=== PATIENT | male | born 1965 | race Two or more races ===

== ENCOUNTER → 2016-06-05 | Outpatient (CLI) | payer BC, OTHER ==
--- NOTE | 2016-06-05 20:49 | PN ---
51-year-old gentleman who has been followed in the sleep center for treatment of obstructive sleep apnea-hypopnea syndrome. Recently patient had a diagnostic sleep study and CPAP titration. We discussed results of the test with him in detail. Presently he is on treatment with CPAP with a pressure of 9 cm of water. The patient demonstrated usage of the machine every night and 23 out of 30 nights for more than 4 hours. Leak is 19 L per minute, which is acceptable. Apnea-hypopnea index reading from the machine is 2.0, which is in normal range. [place] Sleepiness Scale is 8. The patient feels better with the usage of CPAP equipment. He sleeps better and his family sleeps better because he does not snore. MEDICATIONS: None. During physical exam, the patient in no distress. VITAL SIGNS: BP 146/84, HR 106, RR 16. Weight 302. Temperature 98.4, oxygen saturation at room air 96%. HEENT: PERRLA, EOMI oropharynx low position of soft palate. PHYSICAL EXAMINATION: GENERAL: A pleasant patient without any distress. VITAL SIGNS: BP, HR, RR, weight, body mass index. HEENT: PERRLA, EOMI. Evaluation of oropharynx showed tongue protrudes midline. Neck: Supple. No JVD. Thyroid is not palpable. LUNGS: Clear to percussion and to auscultation. Good air exchange. No wheezing or rhonchi. HEART: S1, S2 regular. No murmurs, gallops, or rubs. ABDOMEN: Obese, Soft and nontender. Bowel sounds are present. No organomegaly appreciated. EXTREMITIES: No clubbing or cyanosis. PERINATOLOGY PHYSICIAN: Awake, alert, and oriented x3. Cranial nerves 2 to 7 intact. There is no fasciculation or atrophy noted. No focal deficits observed. IMPRESSION: 1. Obstructive sleep apnea/hypopnea syndrome on control with CPAP at 9 cm of water. Patient demonstrated good compliance with treatment benefiting from treatment. 2. Obesity. The patient complains that he has sometimes soggy nose while he is using CPAP equipment. 3. Severe periodic limb movements have been documented during titration. PLAN: 1. I will decrease pressure to 7 cm of water. 2. Losing weight. 3. We will change full face mask to AirFit F10 style. 4. No driving if feeling any sleepiness. 5. Sleep hygiene with regular time bed for at least 8 hours. Thank you very much for allowing me to participate in the management of your patient. Sincerely, Stan Clemens MD, PhD, FAASM. Diplomat of [place] [employer], Sleep Medicine Board by [place] [employer] [place] [employer] Marketing Clerk of [facility] [place]
== END | disposition home or self-care (01) ==
LOC: SLEEP 16:40
PROVIDERS: ATTEND Internal Medicine
DX: G47.33 Obstructive sleep apnea (adult) (pediatric) (principal); E66.9 Obesity, unspecified

== ENCOUNTER → 2017-07-30 | Outpatient (CLI) | payer BC ==
--- NOTE | 2017-07-30 12:14 | SFUN ---
SLEEP CENTER FOLLOW UP NOTE DATE OF SERVICE: 07/30/2017 A 52-year-old gentleman had been followed in sleep center for treatment of obstructive sleep apnea-hypopnea syndrome. The patient continued to use his CPAP equipment and has developed snoring while using his CPAP unit. [place] Sleepiness Scale is 10. Weight is about the same range. This was done during the titration. I checked the patient's CPAP unit. CPAP pressure is 7 cm of water. Usage for last month is 24/30 nights and 19/30 nights for more than 4 hours, average usage 5.4 hours. Leak 25 L/minute, which is acceptable. Apnea-hypopnea index 3.9, which is acceptable normal range. MEDICATIONS: None. PHYSICAL EXAMINATION: During physical exam, patient in no distress. VITAL SIGNS: BP 146/70, HR 72, RR 16, height 6 feet 7 inches, weight 306, BMI 40.3, temperature 97.7, oxygen saturation room air 96%. HEENT: PERRLA, EOMI. Oropharynx to low position of soft palate. NECK: Supple, no JVD. Thyroid is not palpable. LUNGS: Clear to percussion and to auscultation. Good air exchange. No wheezing or rhonchi. HEART: S1, S2 regular. No murmurs, gallops, or rubs. ABDOMEN: Obese. EXTREMITIES: No clubbing or cyanosis. CORDUROY CUTTING SUPERVISOR: Awake, alert, and oriented X3. Cranial nerves 2 to 7 intact. There is no fasciculation or atrophy. noted. No focal deficits observed. IMPRESSION: 1. Obstructive sleep apnea-hypopnea syndrome. The patient continues successfully to use his CPAP equipment, benefitting from treatment, episodes of snoring while using CPAP. 2. Obesity. 3. History of periodic limb movements during titration. No clinical symptoms of leg movements at the present time. PLAN: 1. I will increase pressure in CPAP unit to 9 cm of water. 2. Losing weight. 3. Sleep hygiene with regular time in bed for at least 8 hours. 4. Patient to continue to use CPAP equipment every night for the whole night. 5. Prescription for all necessary CPAP supplies including mask of patient's choice, tube, filters. Thank you very much for allowing me to participate in management of your patient. Sincerely, Stan Clemens MD, PhD, FAASM Diplomat of [place] [employer] [place] [employer] Piece Jobber of [facility] [place] MMMORENITA / DIONNEN: [id number] /
== END | disposition home or self-care (01) ==
LOC: SLEEP 10:59
PROVIDERS: ATTEND Internal Medicine
DX: G47.33 Obstructive sleep apnea (adult) (pediatric) (principal); E66.9 Obesity, unspecified; Z99.89 Dependence on other enabling machines and devices; Z68.41 Body mass index [BMI] 40.0-44.9, adult

== ENCOUNTER → 2018-06-09 | Outpatient (CLI) | payer OTHER ==
[2018-06-09 17:37] LABS: LDL Cholesterol,Calculated 97.8 mg/dL (0.0-131.0); VLDL Calculation 24.2 mg/dL (5.00-40.00)
== END ==
LOC: LABWHC1 09:54
PROVIDERS: ATTEND Family Medicine
DX: Z00.00 Encounter for general adult medical examination without abnormal findings (principal)
CPT/HCPCS: 80061; 83036; 36415; G0103

== ENCOUNTER → 2018-06-09 | Outpatient (CLI) | payer OTHER ==
[2018-06-09 11:19] LABS: Appearance,Urine Clear (Clear); Bilirubin,Urine Negative (Negative); Blood,Urine Negative (Negative); Color,Urine Yellow; Glucose,Urine (UA) Negative (Negative); Ketones,Urine Negative (Negative); Leukocyte Esterase,Urine Negative (Negative); Nitrite,Urine Negative (Negative); PH, Urine 7.5 (5.0-8.0); Protein,Urine Negative (Negative); Urobilinogen,Urine <2.0 mg/dL (<2.0)
[2018-06-09 11:38] LABS: ALT 37 U/L (21-72); AST 20 U/L (17-59); Albumin 4.2 g/dL (3.5-5.0); Alkaline Phosphatase 74 U/L (38-126); Anion Gap 7 mmol/L; Blood Urea Nitrogen 12 mg/dL (9-20); Calcium 9.3 mg/dL (8.4-10.2); Carbon Dioxide 28 mmol/L (22-30); Chloride 106 mmol/L (98-107); Glucose 96 mg/dL (74-99); Potassium 4.8 mmol/L (3.5-5.1); Sodium 141 mmol/L (137-145); Total Bilirubin 0.6 mg/dL (0.2-1.3); Total Protein 6.6 g/dL (6.3-8.2)
[2018-06-09 11:52] LABS: HGB 15.4 gm/dL (13.0-17.5); MCHC 32.7 g/dL (31.0-37.0); MCV 91.6 fL (80.0-100.0); Mean Platelet Volume 7.1; Platelet Count 263 k/uL (150-450); RBC 5.13 m/uL (4.30-5.90); RDW 12.7 % (11.5-15.5); WBC 5.9 k/uL (3.8-10.6)
[2018-06-09 12:15] LABS: INR 0.9 (<1.2); Partial Thromboplastin Time 24.3 sec (22.0-30.0); Prothrombin Time 9.6 sec (9.0-12.0)
== END | disposition home or self-care (01) ==
LOC: LABPAT 09:57
PROVIDERS: ATTEND Orthopaedic Surgery
DX: Z01.812 Encounter for preprocedural laboratory examination (principal); M16.12 Unilateral primary osteoarthritis, left hip
CPT/HCPCS: 80053; 81003; 85027; 85610; 85730; 87070

== ENCOUNTER 2018-06-21 07:00 | Inpatient (IN) | payer BC, OTHER ==
[2018-06-22] MEDS ORDERED: ceFAZolin 3 GM in SODIUM CHLORIDE 0.9% 100 ML IVPB ONE (05:00)
[2018-06-22] MEDS ORDERED: ACETAMINOPHEN TAB 500 MG TAB PO ONE (05:00)
[2018-06-22] MEDS ORDERED: TRANEXAMIC ACID 1,000 MG in SODIUM CHLORIDE 0.9% 100 ML IVPB ONE ×4 (05:00)
[2018-06-22] MEDS ORDERED: MELOXICAM 7.5 MG TAB PO ONE (05:00)
[2018-06-22] MEDS ORDERED: HYDROmorphone 0.5 MG/0.5 ML SYRINGE IVP PRN (05:16)
[2018-06-22] MEDS ORDERED: MIDAZOLAM 2 MG/2 ML VIAL IV PRN (05:16)
[2018-06-22] MEDS ORDERED: ONDANSETRON 4 MG/2 ML VIAL IVP ONE (05:16)
[2018-06-22] MEDS ORDERED: SCOPOLAMINE 1.5MG/72HR PATCH TRANSDERM ONE (05:16)
[2018-06-22] MEDS ORDERED: DEXAMETHASONE SOD PHOSPHATE 10 MG/ML 1 ML VIAL IV ONE (05:16)
[2018-06-22] MEDS ORDERED: LIDOCAINE 1% 20 ML VIAL (10MG/ML) FOR IV START INTRADERMA PRN (05:16)
[2018-06-22] MEDS ORDERED: LACTATED RINGERS 1,000 ML IV SCH (05:16)
[2018-06-22] MEDS ORDERED: ROPIVACAINE 246.25 MG, EPINEPHrine 0.5 MG, KETOROLAC 30 MG, cloNIDine HCL/PF 80 MCG, WA... MISCELLANE ONE ×5 (06:00)
[2018-06-22] MEDS ORDERED: TRANEXAMIC ACID 1,000 MG/10 ML VIAL ONE (06:57)
[2018-06-22] MEDS ORDERED: MIDAZOLAM 2 MG/2 ML VIAL ONE (06:57)
[2018-06-22] MEDS ORDERED: fentaNYL (PF) 50 MCG/ML 2 ML AMP ONE (06:57)
[2018-06-22] MEDS ORDERED: SODIUM CHLORIDE 0.9% 100 ML BAG ONE (06:57)
[2018-06-22] MEDS ORDERED: KETAMINE 10 MG/ML 20 ML VIAL ONE (06:57)
[2018-06-22] MEDS ORDERED: HEPARIN SODIUM,PORCINE 10,000 UNIT/ML 1 ML VIAL ONE (06:57)
[2018-06-22] MEDS ORDERED: diphenhydrAMINE 50 MG/ML 1 ML VIAL ONE (06:57)
[2018-06-22] MEDS ORDERED: LACTATED RINGERS 1,000 ML BAG IV ONE (06:57)
[2018-06-22] MEDS ORDERED: PROPOFOL 10 MG/ML 20 ML VIAL IV ONE (06:57)
[2018-06-22] MEDS ORDERED: GLYCOPYRROLATE 0.2 MG/ML 2 ML VIAL ONE (06:57)
[2018-06-22] MEDS ORDERED: ceFAZolin 3,000 MG in SODIUM CHLORIDE 0.9% IRRIGATIO 3,000 ML IRRIGATION ONE (07:27)
[2018-06-22] MEDS ORDERED: LACTATED RINGERS 1,000 ML IV ONE (08:03)
[2018-06-22] MEDS ORDERED: ONDANSETRON 4 MG/2 ML VIAL IVP PRN (09:00)
[2018-06-22] MEDS ORDERED: NALOXONE 0.4 MG/ML 1 ML VIAL IV PRN (09:00)
[2018-06-22] MEDS ORDERED: HYDROmorphone 1 MG/ML 1 ML SYRINGE IVP PRN ×2 (09:00)
[2018-06-22] MEDS ORDERED: HYDROcodone/APAP 5-325MG 1 EACH TAB PO PRN (09:00)
[2018-06-22] MEDS ORDERED: MAGNESIUM HYDROXIDE 2,400 MG/10 ML CUP PO PRN (09:00)
[2018-06-22] MEDS ORDERED: TEMAZEPAM 15 MG CAP PO PRN (09:00)
--- NOTE | 2018-06-22 09:02 | P.OP ---
Date of Procedure: 06/22/18 Preoperative Diagnosis: Severe osteoarthritis left hip Postoperative Diagnosis: Severe osteoarthritis left hip Procedure(s) Performed: Left total hip arthroplasty with a direct anterior approach Implants: Miranda and nephew Polarstem size 6 standard Miranda & Nephew R3, 3 hole acetabular shell, 56 mm Miranda & Nephew reflection 6.5 mm cancellus screw, 20 mm, 25 mm Miranda & Nephew R3, XLPE 20 acetabular liner Miranda & Nephew Oxinium femoral head 36 m, +8 All components were press-fit. The articulation is Oxinium on polyethylene. Anesthesia: spinal Surgeon: Marciano Gannon Cable Installation Technician #1: Suzanna Joyce Estimated Blood Loss (ml): 470 (180 mL returned with Cell Saver) Pathology: other (Femoral head) Condition: stable Disposition: PACU Indications for Procedure: After failure of conservative treatment we discussed the surgical and nonsurgical treatment options at length. Patient wishes to proceed with a total hip arthroplasty with a direct anterior approach. Complications specific to this procedure were discussed at length, including but not limited to infection, leg length discrepancy, dislocation, and nerve injury. Patient is aware of all these complications and informed consent was obtained Operative Findings: The operative findings are consistent with severe osteoarthritis of the left hip Description of Procedure: Patient was seen and evaluated in the preoperative area, consent was reviewed, and the surgical site was marked with a skin marker. Patient was then brought to the operating room and given prophylactic antibiotics intravenously. 1 g of Tranexamic acid was also given. A spinal anesthetic was administered by the anesthesia department. The patient was then placed on the [place] table with the bony prominences well-padded. The hip area was then prepped and draped in usual sterile fashion. A universal timeout was then performed, which confirmed the patient's name, surgical site, ALLERGIES, and procedure being performed. Next the incision site was located at 1 cm distal and 1 cm lateral to the anterior superior iliac spine. The skin and subcutaneous tissues were sharply incised. Incision was carefully dissected down to the fascia overlying the tensor fascia francisco javier muscle. This fascia was then incised in line with the incision. Next, using blunt finger dissection, the tensor fascia francisco javier muscle was dissected off its investing fascia. The muscle was then carefully retracted laterally with a cobra retractor over the lateral neck of the femur. Next, the circumflex vessels were identified and cauterized using the AquaMantis device. The anterior hip capsule was then exposed. The capsule was then opened and an inverted T fashion. Cobra retractors were then placed intracapsularly. The proximal femur was then visualized. The femoral neck was then osteotomized appropriate level above the lesser trochanter. Small amount of traction was placed with the [place] table. A small wedge of bone was then removed from the remaining femoral head. Next, using a corkscrew femoral head was easily removed from the acetabulum. On gross visual inspection, the femoral head had complete loss of articular cartilage in m ultiple periarticular osteophytes. Attention was then turned to the acetabulum. the acetabulum was exposed and any remaining labrum was excised. Sequential reaming of the acetabulum was performed using fluoroscopic guidance. When the appropriate size was reached, a trial was then placed. The position and fit of the trial was checked with fluoroscopy. The trial was then removed. Then, using fluoroscopic guidance, the final implant was impacted at 20 of anteversion and 40 of abduction, and fully seated in the acetabulum. 2 screws were then placed in the acetabulum. Again fluoroscopy was used to check position of the screws. Next, the liner was then impacted, with a 20 elevated liner located in the anterior superior quadrant. Component locking was confirmed. Attention was then directed to the femur. With the aid of the [place] table, the femur was externally rotated to approximately 130, extended, and abducted under the opposite leg. A side hook was then placed under the proximal femur, and the side hook elevator was used to elevate the proximal femur. Retractors were then placed. A capsular release was performed, as well as a release of the conjoined tendon, which afforded excellent visualization of the proximal femur. Next, a box osteotome was used to lateralize the proximal femur. A launderer hand was then used to locate the femoral canal. Sequential broaching was then performed with appropriate size which afforded excellent fixation in the proximal femur. A trial was then placed with appropriate head and neck, and the hip was gently reduced with the aid of the [place] table. Fluoroscopy was then used to check position of the components, as well as to ensure equal leg lengths. The hip was then gently dislocated and the trials were then removed. Final implants were then impacted and the hip was again reduced. Final fluoroscopic x-rays confirmed that the components were in anatomic position, as well as equal leg lengths. The hip was also taken through range of motion, and found to be stable. The hip was then copiously irrigated with antibiotic solution with pulsatile lavage. The hip was then irrigated with Irrisept solution. The soft tissues were then injected with a ropivacaine solution, which consisted of 246.25 mg of ropivacaine, 0.5 mg of epinephrine, 30 mg of Toradol, 80 g of clonidine, and 48.45 mL of sterile water, for a total of 100 mL of fluid injected. A second dose of 1 g of Tranexamic acid was also given. the fascia was then closed with 2-0 strata fix suture. The subcutaneous tissue was closed with 3-0 Vicryl. The subcuticular tissue was closed with 3-0 strata fix suture. The skin was then closed with Dermabond glue and a sterile silver dressing. The patient was then transferred to the recovery room in stable c ondition. The hardware sales assistant Suzanna Joyce NP was required due to the complexity of surgery, and the need for skilled surgical garment fitter for positioning, draping, exposure, retraction, and closure of the wound.
--- NOTE | 2018-06-22 09:05 | XR ---
EXAMINATION TYPE: XR Hip Limited LT, FL guidance operating room DATE OF EXAM: 06/22/2018 CLINICAL HISTORY: Left hip arthroplasty fluoroscopic documentation TECHNIQUE: Fluoroscopy. COMPARISON: None. FINDINGS: Fluoroscopic guidance was provided during procedure performed by Dr. Gannon. A total of 1 minute and 5 seconds of fluoroscopic time was utilized during the procedure and 2 spot images was acquired during left hip arthroplasty. IMPRESSION: As Above.
--- NOTE | 2018-06-22 09:29 | XR ---
EXAMINATION TYPE: XR Hip Limited LT DATE OF EXAM: 06/22/2018 COMPARISON: NONE HISTORY: Postsurgical TECHNIQUE: One view submitted. FINDINGS: There is postsurgical change in near anatomic alignment. There is soft tissue edema and emphysema. IMPRESSION: 1. Postoperative change. Appears in near-anatomic alignment.
[2018-06-22] MEDS: HYDROcodone/APAP 5-325MG 1 EACH TAB PO PRN (12:26)
[2018-06-22] MEDS: hydrOXYzine PAMOATE 25 MG CAP PO PRN (12:30)
[2018-06-22] MEDS: LACTATED RINGERS 1,000 ML IV SCH ×2 (12:31→22:20)
[2018-06-22 14:00] VITALS: BMI 39.2
[2018-06-22] MEDS: HYDROmorphone 1 MG/ML 1 ML SYRINGE IVP PRN ×3 (14:12→21:26)
[2018-06-22] MEDS: ceFAZolin 3 GM in SODIUM CHLORIDE 0.9% 100 ML IVPB SCH (17:27)
[2018-06-22] MEDS: LOSARTAN 25 MG TAB PO SCH (18:01)
[2018-06-22] MEDS: ASPIRIN 325 MG TAB PO SCH (21:26)
[2018-06-22] MEDS: SENNOSIDES-DOCUSATE SODIUM 1 EACH TAB PO SCH (21:26)
[2018-06-23] MEDS: ceFAZolin 3 GM in SODIUM CHLORIDE 0.9% 100 ML IVPB SCH (00:02)
[2018-06-23] MEDS: HYDROcodone/APAP 5-325MG 1 EACH TAB PO PRN ×2 (01:45→07:39)
[2018-06-23] MEDS: LACTATED RINGERS 1,000 ML IV SCH ×2 (07:19→13:43)
[2018-06-23] MEDS: LOSARTAN 25 MG TAB PO SCH (08:01)
[2018-06-23] MEDS: ASPIRIN 325 MG TAB PO SCH ×2 (08:01→20:32)
[2018-06-23] MEDS ORDERED: HYDROcodone/APAP 7.5-325MG 1 EACH TAB PO PRN ×2 (08:14)
--- NOTE | 2018-06-23 08:24 | P.DS ---
Providers Date of admission: 06/22/18 05:55 Expected date of discharge: 06/23/18 Attending physician: Marciano Gannon Consults: 06/22/18 09:00 Consult Physician Routine Consulting Provider: Virgilio Branch Reason/Comments: medical management Do you want consulting provider notified?: Yes Primary care physician: Virgilio Branch - Discharge Diagnosis(es) (1) Osteoarthritis of left hip Current Visit: Yes Status: Acute (2) Status post total hip replacement, left Current Visit: Yes Status: Acute (3) Hypertension Current Visit: Yes Status: Acute Hospital Course: This is a 53-year-old male with known history of degenerative arthritis of the left hip. The patient presents for evaluation. After discussion and consideration patient elects to proceed with total hip arthroplasty. The patient is seen preoperatively by Dr. Branch and cleared for surgery. Patient is admitted to [facility] on 06/22/2018 for anterior left total hip arthroplasty. The procedures performed without complication or sequelae. The patient is doing well postoperatively. Labs and vital signs are stable on day of discharge. On day of discharge patient's hip incision is healing well. There is minimal erythema. There is no drainage noted at this time. There is minimal soft tissue swelling to the hip and thigh. Patient has full foot and ankle motion without difficulty or pain. Neurovascular status to the left lower extremity is intact. Patient is discharged to home in good condition. Pertinent Studies: Laboratory Tests 06/23/18 08:57 WBC 9.6 RBC 4.41 Hgb 13.8 Hct 40.9 Patient Condition at Discharge: Stable Plan - Discharge Summary Discharge Rx Participant: Yes New Discharge Prescriptions: New Aspirin 325 mg PO BID #60 tab Hydrocodone/Acetaminophen [[place] 7.5-325] 1 - 2 tab PO Q4-6H PRN 7 Days #50 tab PRN Reason: Pain Sennosides-Docusate Sodium [Senokot-S] 2 tab PO DAILY #30 tablet No Action Losartan [Cozaar] 25 mg PO DAILY Ibuprofen [Motrin] 800 mg PO BID PRN PRN Reason: Pain Discharge Medication List Ibuprofen [Motrin] 800 mg PO BID PRN 06/14/18 [History] Losartan [Cozaar] 25 mg PO DAILY 06/14/18 [History] Aspirin 325 mg PO BID #60 tab 06/23/18 [Rx] Hydrocodone/Acetaminophen [[place] 7.5-325] 1 - 2 tab PO Q4-6H PRN 7 Days #50 tab 06/23/18 [Rx] Sennosides-Docusate Sodium [Senokot-S] 2 tab PO DAILY #30 tablet 06/23/18 [Rx] Follow up Appointment(s)/Referral(s): [facility], [NON-STAFF] - Marciano Gannon DO [Doctor of Osteopathic Medicine] - 2 Weeks Activity/Diet/Wound Care/Special Instructions: Weightbearing as tolerated with walker Keep dressing in place for 10 days unless saturated Aspirin 325 mg twice a day May shower over dressing Follow up with Dr. Marciano Gannon in 2 weeks. Call [facility] with questions or concerns, Discharge Disposition: HOME WITH HOME HEALTH SERVICES
[2018-06-23 09:39] LABS: Basophils % (A) 0 %; Eosinophils # (A) 0.1 k/uL (0-0.7); Eosinophils % (A) 1 %; HCT 40.9 % (39.0-53.0); HGB 13.8 gm/dL (13.0-17.5); Lymphocytes # (A) 2.2 k/uL (1.0-4.8); Lymphocytes % (A) 23 %; MCH 31.3 pg (25.0-35.0); MCHC 33.8 g/dL (31.0-37.0); MCV 92.7 fL (80.0-100.0); Monocytes # (A) 0.6 k/uL (0-1.0); Monocytes % (A) 7 %; Neutrophils # (A) 6.6 k/uL (1.3-7.7); Neutrophils % (A) 69 %; Platelet Count 280 k/uL (150-450); RBC 4.41 m/uL (4.30-5.90); WBC 9.6 k/uL (3.8-10.6)
[2018-06-23] MEDS ORDERED: HYDROcodone/APAP 10-325MG 1 EACH TAB PO PRN (15:18)
[2018-06-23] MEDS ORDERED: DIAZEPAM 5 MG TAB PO PRN (15:19)
[2018-06-23] MEDS: HYDROcodone/APAP 10-325MG 1 EACH TAB PO PRN ×2 (19:03→23:03)
[2018-06-23] MEDS: SENNOSIDES-DOCUSATE SODIUM 1 EACH TAB PO SCH (20:32)
[2018-06-23] MEDS: hydrOXYzine PAMOATE 25 MG CAP PO PRN (23:04)
[2018-06-24] MEDS: HYDROcodone/APAP 10-325MG 1 EACH TAB PO PRN ×4 (03:08→15:02)
[2018-06-24] MEDS: LACTATED RINGERS 1,000 ML IV SCH ×2 (05:43→08:51)
--- NOTE | 2018-06-24 06:47 | P.CONS ---
History of Present Illness - Reason for Consult Consult date: 06/23/18 Medical management- hypertension Requesting physician: Marciano Gannon - Chief Complaint Degenerative arthritis of left hip - History of Present Illness This is a 53-year-old gentleman with history of osteoarthritis, hypertension with significant degenerative arthritis of the left hip. On admission low-grade fever, 99.2 currently afebrile.VSS. Evaluated by a orthopedic surgery and proceeded with elective total hip arthroplasty. Tolerated procedure well. Operative site dressing clean dry and intact Ambulating with walker, tolerating exertion well. Passing flatus, reports bowel movement yesterday. He complains of significant pain and orthopedics has increased patient's pain medication. Denies chest pain, palpitations or increasing shortness of breath. Patient reports he recently had right knee injected at the office on last Thursday. Right knee with mild edema, tender. Review of Systems GENERAL: Patient denies fever. Denies chills. EYES: Denies blurred vision. Denies vision changes. Denies eye pain. EARS, NOSE, MOUTH, & THROAT: Denies headache. Denies sore throat. Denies ear pain. RESPIRATORY: Denies cough. Denies shortness of breath. Denies sputum production. Denies hemoptysis. CARDIOVASCULAR: Denies chest pain or pressure. Denies palpitations. Denies arrhythmias. GASTROINTESTINAL: Denies abdominal pain. Denies diarrhea. Denies constipation. Denies nausea. Denies vomiting. Denies heartburn. Denies blood in the stool. GENITOURINARY: Denies urinary frequency. Denies burning. Denies dysuria. Denies cloudy urine. Denies blood in the urine. MUSCULOSKELETAL: Admits myalgias. Admits joint swelling. Admits to severe pain in the left hip, right knee with decreased range of motion INTEGUMENTARY: Denies pruitis. Denies rash. PSYCHIATRIC: Denies suicidal or homicial ideations. ENDOCRINE: Denies weight change. Denies polydipsia. Denies polyuria. HEMATOLOGIC: Denies bleeding disorders. Past Medical History Past Medical History: Hypertension, Osteoarthritis (OA) History of Any Multi-Drug Resistant Organisms: None Reported Past Surgical History: Hernia Repair, Orthopedic Surgery Additional Past Surgical History / Comment(s): rosa knee arthroscopy, left eye sx (muscle), rt hand sx Past Anesthesia/Blood Transfusion Reactions: No Reported Reaction Past Psychological History: No Psychological Hx Reported Smoking Status: Never smoker Past Alcohol Use History: None Reported Past Drug Use History: None Reported - Past Family History Father Family Medical History: Cancer Additional Family Medical History / Comment(s): stomach Mother Family Medical History: Deep Vein Thrombosis (DVT) Medications and Allergies Home Medications Medication Instructions Recorded Confirmed Type Losartan [Cozaar] 25 mg PO DAILY 06/14/18 06/22/18 History Aspirin 325 mg PO BID #60 tab 06/23/18 Rx Hydrocodone/Acetaminophen [[place] 1 - 2 tab PO Q4-6H PRN 7 Days #50 06/23/18 Rx 7.5-325] tab Sennosides-Docusate Sodium 2 tab PO DAILY #30 tablet 06/23/18 Rx [Senokot-S] Allergies Allergy/AdvReac Type Severity Reaction Status Date / Time latex Allergy Anaphylaxis Verified 06/22/18 10:59 Penicillins Allergy Rash/Hives Verified 06/22/18 10:59 Physical Exam Vitals: Vital Signs Temp Pulse Resp BP Pulse Ox 06/23/18 14:34 98.2 F 94 14 163/79 99 06/23/18 08:00 14 06/23/18 07:00 97.9 F 66 14 134/78 99 06/22/18 23:00 97.6 F 73 18 118/70 98 06/22/18 21:18 97.6 F 69 18 130/75 98 Intake and Output 06/23/18 06/23/18 06/23/18 06:59 14:59 22:59 Intake Total 1250 866 Balance 1250 866 Intake: Intake, IV Titration 600 300 Amount Lactated Ringers 1,000 ml 600 300 @ 100 mls/hr IV .Q10H [facility] Rx#:[id number] Oral 650 566 Other: Voiding Method Toilet # Voids 2 GENERAL: This is a -53-year-old gentleman in no apparent distress at the time of examination. Pleasant and cooperative. HEENT: Head is atraumatic, normocephalic. Pupils are equal, round, and reactive to light. Sclerae anicteric. Conjunctivae are clear. Mucus membranes of the mouth are moist. Neck is supple. RESPIRATORY: Clear to auscultation. No wheezes, rales, or rhonchi. No use of accessory muscles. Patient maintaining oxygen saturation greater than 98%. No chest wall tenderness is noted on palpation or with deep breathing. CARDIOVASCULAR: Regular rate and rhythm. S1 and S2 noted. No systolic or di astolic murmur auscultated. No JVD noted. No S3 or S4 noted. GASTROINTESTINAL: No distention noted. Abdomen soft and round. Normal active bowel sounds auscultated x 4 quadrants. No pain or tenderness noted upon palpation. INTEGUMENTARY: No cyanosis. No jaundice. No rashes noted. No cellulitis noted. Right knee with mild edema, tenderness. Left surgical site dressing clean dry and intact, mild edema EXTREMITIES: 2+ peripheral pulses. No evidence of peripheral edema. No calf tenderness noted. NEUROLOGIC: Cranial nerves II-XII intact. PSYCHIATRIC: Awake, alert, and oriented X 3. Appropriate affect. Intact judgement and insight. Results CBC & Chem 7: 06/23/18 08:57 Assessment and Plan Assessment: -Osteoarthritis of left hip, status post total hip replacement -Hypertension -Obesity, BMI 39.3 Plan: Continue on current medication regime ,monitoring and symptomatic treatment. Patient has been advised to resume his antihypertensive medications. Orthopedic surgery discussing discharging patient today. Pain management as per orthopedics, has been increased. Home care being arranged per case management. Further recommendations to follow. Thank you Dr. Gannon for allowing us to participate in the care of this pleasant gentleman. The impression and plan of care has been dictated as directed. : I performed a history and examination of this patient, discussed the same with the dictator. I agree with the dictator's note ,documented as a scribe. Any additional findings or plans will be noted. Time taken: 35 minutes
[2018-06-24] MEDS: hydrOXYzine PAMOATE 25 MG CAP PO PRN ×2 (07:18→15:03)
[2018-06-24 08:06] VITALS: BP 185/83; PULSE 99; RESP 16; TEMP 99.6
[2018-06-24] MEDS: LOSARTAN 25 MG TAB PO SCH (08:48)
[2018-06-24] MEDS: ASPIRIN 325 MG TAB PO SCH (08:48)
[2018-06-24 09:56] LABS: Anion Gap 5 mmol/L; Blood Urea Nitrogen 11 mg/dL (9-20); Calcium 8.6 mg/dL (8.4-10.2); Carbon Dioxide 30 mmol/L (22-30); Chloride 102 mmol/L (98-107); Glucose 106 mg/dL (74-99); Sodium 137 mmol/L (137-145)
[2018-06-24 10:27] LABS: Appearance,Urine Clear (Clear); Bilirubin,Urine Negative (Negative); Blood,Urine Negative (Negative); Color,Urine Yellow; Glucose,Urine (UA) Negative (Negative); Ketones,Urine Negative (Negative); Leukocyte Esterase,Urine Negative (Negative); Nitrite,Urine Negative (Negative); PH, Urine 6.5 (5.0-8.0); Protein,Urine Negative (Negative); Specific Gravity,Urine 1.015 (1.001-1.035); Urobilinogen,Urine <2.0 mg/dL (<2.0)
--- NOTE | 2018-06-24 11:54 | XR ---
EXAMINATION TYPE: XR chest 2V DATE OF EXAM: 06/24/2018 COMPARISON: NONE HISTORY: Fever and tachycardia. TECHNIQUE: Frontal and lateral views of the chest are obtained. FINDINGS: There is no focal air space opacity, pleural effusion, or pneumothorax seen. The cardiac silhouette size is within normal limits. The osseous structures are intact. Minimal multilevel dege nerative change of the spine. IMPRESSION: No acute cardiopulmonary process.
--- NOTE | 2018-06-24 15:49 | P.PN ---
Subjective Progress Note Date: 06/24/18 This is a 53-year-old gentleman with history of osteoarthritis, hypertension with significant degenerative arthritis of the left hip. On admission low-grade fever, 99.2 currently afebrile.VSS. Evaluated by a orthopedic surgery and proceeded with elective total hip arthroplasty. Tolerated procedure well. Operative site dressing clean dry and intact Ambulating with walker, tolerating exertion well. Passing flatus, reports bowel movement yesterday. He complains of significant pain and orthopedics has increased patient's pain medication. Denies chest pain, palpitations or increasing shortness of breath. Patient reports he recently had right knee injected at the office on last Thursday. Right knee with mild edema, tender. 06-24-18 patient had a rough night ;T-max 101.5, tachycardic with heart rates in the 110s, blood pressure elevated ranging 140s to 180s, accompanied by nausea. Pain medication further adjusted last night as per orthopedics. Passing flatus, no bowel movement. Incentive spirometer up to 2500. Denies shortness of breath. Denies chest pain, palpitations. Currently pain controlled, tachycardia resolved, afebrile. urine culture, chest x-ray ordered. Objective - Vital Signs Vital signs: Vital Signs Temp 99.6 F 06/24/18 07:00 Pulse 99 06/24/18 07:00 Resp 16 06/24/18 07:00 BP 185/83 06/24/18 07:00 Pulse Ox 97 06/24/18 07:00 Intake & Output 06/23/18 06/24/18 06/24/18 18:59 06:59 18:59 Intake Total 866 118 Balance 866 118 Intake: Intake, IV Titration 300 Amount Lactated Ringers 1,000 ml 300 @ 100 mls/hr IV .Q10H [facility] Rx#:[id number] Oral 566 118 Other: Voiding Method Toilet Toilet Toilet # Voids 3 - Exam GENERAL: This is a -53-year-old gentleman , sitting up in bed, no acute distress. HEENT: Head is atraumatic, normocephalic. Pupils are equal, round, and reactive to light. Sclerae anicteric. Conjunctivae are clear. Mucus membranes of the mouth are moist. Neck is supple. RESPIRATORY: Clear to auscultation. No wheezes, rales, or rhonchi. No use of accessory muscles. Patient maintaining oxygen saturation greater than 98%. No chest wall tenderness is noted on palpation or with deep breathing. CARDIOVASCULAR: Regular rate and rhythm. S1 and S2 noted. No systolic or diastolic murmur auscultated. No JVD noted. No S3 or S4 noted. GASTROINTESTINAL: No distention noted. Abdomen soft and round. Normal active bowel sounds auscultated x 4 quadrants. No pain or tenderness noted upon palpation. INTEGUMENTARY: No cyanosis. No jaundice. No rashes noted. No cellulitis noted. Right knee with mild edema. Left surgical site dressing clean dry and intact, mild edema EXTREMITIES: 2+ peripheral pulses. No evidence of peripheral edema. No calf tenderness noted. NEUROLOGIC: Cranial nerves II-XII intact. PSYCHIATRIC: Awake, alert, and oriented X 3. Appropriate affect. Intact judgement and insight. - Labs CBC & Chem 7: 06/23/18 08:57 06/24/18 09:18 Labs: Abnormal Lab Results - Last 24 Hours (Table) 06/24/18 Range/Units 09:18 Glucose 106 H (74-99) mg/dL Assessment and Plan Assessment: -Osteoarthritis of left hip, status post total hip replacement -Hypertension -Obesity, BMI 39.3 -Fevers, workup in progress, suspect related to atelectasis Plan: Continue on current medication regime ,monitoring and symptomatic treatment. Pain management as per orthopedic surgery. Aggressive pulmonary toileting with incentive spirometry reinforced. Orthopedic surgery discussing discharging patient possibly later today. Chest x-ray, UA/culture pending. Further recommendations to follow. Thank you Dr. Gannon for allowing us to participate in the care of this pleasant gentleman. The impression and plan of care has been dictated as directed. DrTrent: I performed a history and examination of this patient, discussed the same with the dictator. I agree with the dictator's note ,documented as a scribe. Any ad ditional findings or plans will be noted. Time taken: 35 minutes
== END 2018-06-24 15:15 | disposition home health service (06) | DRG 470 ==
LOC: 2ORMAIN 06-22 05:55 → 4SSUR 06-22 10:46
PROVIDERS: ADMIT Orthopaedic Surgery; ATTEND Orthopaedic Surgery
PROC: 30233N0 Transfusion of Autologous Red Blood Cells into Peripheral Vein, Percutaneous Approach (ICD-10-PCS; 2018-06-22)
PROC: 0SRB06A Replacement of Left Hip Joint with Oxidized Zirconium on Polyethylene Synthetic Substitute, Uncemented, Open Approach (ICD-10-PCS; principal; 2018-06-22 07:00)
DX: M16.12 Unilateral primary osteoarthritis, left hip (principal); E66.9 Obesity, unspecified; Z68.39 Body mass index [BMI] 39.0-39.9, adult; I10 Essential (primary) hypertension; R00.0 Tachycardia, unspecified; R11.0 Nausea; R50.9 Fever, unspecified; Z79.899 Other long term (current) drug therapy; Z79.82 Long term (current) use of aspirin; Z88.0 Allergy status to penicillin; Z91.040 Latex allergy status; Z82.49 Family history of ischemic heart disease and other diseases of the circulatory system; Z80.9 Family history of malignant neoplasm, unspecified
CPT/HCPCS: 71046; 73501; 80048; 81003; 85025; 86850; 86891; 86900; 86901; 88300

== ENCOUNTER → 2018-10-14 | Outpatient (CLI) | payer OTHER ==
--- NOTE | 2018-10-14 18:52 | PN ---
PROGRESS NOTE DATE OF SERVICE: 10/14/2018 This patient is a 53-year-old gentleman who has been followed in the sleep center for treatment of obstructive sleep apnea-hypopnea syndrome. The patient successfully continues to use his CPAP equipment every night for the whole night. According to his , he may have occasional snoring while using his CPAP. Otherwise, no problems with the mask or machine. He is actually now using 2 machines, one at home and one out of home. [place] Sleepiness Scale today is 7. I checked his CPAP unit. CPAP pressure is 9 cm of water. Usage is 25/30 nights, with 23/30 nights for more than 4 hours with average usage 5.8 hours per night. CPAP at 9 cm of water. Leak is 25 L/minute, which is okay for a full-face mask. Apnea-hypopnea index is only 2.3, which is totally normal. MEDICATION: Losartan. PHYSICAL EXAMINATION: GENERAL: A pleasant patient in no distress. VITAL SIGNS: BP 127/74, HR 79, RR 16, height 6 feet 1 inch, weight 308.0 pounds, which is 2 pounds more than one year ago. Temperature 98.8, oxygen saturation at room air 95%. HEENT: PERRLA, EOMI. Evaluation of oropharynx showed tongue protrudes midline. Low position of soft palate. Mallampati IV. NECK: Supple. No JVD. Thyroid is not palpable. LUNGS: Clear to percussion and to auscultation. Good air exchange. No wheezing or rhonchi. HEART: S1, S2 regular. No murmurs, gallops or rubs. ABDOMEN: Obese. EXTREMITIES: No clubbing or cyanosis. COST ESTIMATING MANAGER: Awake, alert, and oriented X3. Cranial nerves 2 to 7 intact. There is no fasciculation or atrophy. noted. No focal deficits observed. IMPRESSION: 1. Obstructive sleep apnea-hypopnea syndrome. Patient demonstrated great compliance with treatment, benefitting from treatment. 2. Hypertension, presently on treatment with losartan. 3. Obesity. 4. History of periodic limb movements during titration, but no symptoms of periodic limb movements at night. PLAN: 1. Patient will continue to use CPAP equipment every night for the whole night. 2. I will slightly increase pressure in CPAP unit to 10 cm of water for snoring. 3. Losing weight. 4. Sleep hygiene with regular time in bed for at least 7-1/2 hours. 5. No driving if feeling any sleepiness. 6. I will maintain prescriptions for all CPAP supplies, including mask, tube, filters. 7. Follow-up visit in one year, or earlier if patient has any problems. Thank you very much for allowing me to participate in the management of your patient. Sincerely, Stan Clemens MD, PhD, FAASM Diplomat of [place] [employer] [place] [employer] Medicine Hardening Machine Operator Helper of [facility] [place] MMODL / IJN: [id number] /
== END ==
LOC: SLEEP 15:04
PROVIDERS: ATTEND Internal Medicine
DX: G47.33 Obstructive sleep apnea (adult) (pediatric) (principal); E66.9 Obesity, unspecified; I10 Essential (primary) hypertension; Z99.89 Dependence on other enabling machines and devices; Z79.899 Other long term (current) drug therapy

== ENCOUNTER → 2018-10-26 | Outpatient (CLI) | payer OTHER ==
[2018-10-26 11:56] LABS: INR 0.9 (<1.2); Partial Thromboplastin Time 25.3 sec (22.0-30.0); Prothrombin Time 9.6 sec (9.0-12.0)
[2018-10-26 12:13] LABS: Basophils % (A) 0 %; Eosinophils # (A) 0.1 k/uL (0-0.7); Eosinophils % (A) 2 %; HCT 46.3 % (39.0-53.0); HGB 15.8 gm/dL (13.0-17.5); Lymphocytes # (A) 1.4 k/uL (1.0-4.8); Lymphocytes % (A) 32 %; MCH 30.2 pg (25.0-35.0); MCHC 34.1 g/dL (31.0-37.0); MCV 88.5 fL (80.0-100.0); Mean Platelet Volume 7.2; Monocytes # (A) 0.2 k/uL (0-1.0); Monocytes % (A) 5 %; Neutrophils # (A) 2.5 k/uL (1.3-7.7); Neutrophils % (A) 59 %; Platelet Count 272 k/uL (150-450); RBC 5.23 m/uL (4.30-5.90); RDW 14.3 % (11.5-15.5); WBC 4.2 k/uL (3.8-10.6)
[2018-10-26 16:50] LABS: Albumin 4.3 g/dL (3.80-4.90); Albumin/Globulin Ratio 2.39 (1.60-3.17); Anion Gap 7.2 mmol/L (4.00-12.00); BUN/Creat Ratio 14.44 Ratio (12.00-20.00); Calcium 9.3 mg/dL (8.7-10.3); Carbon Dioxide 26.8 mmol/L (21.6-31.8); Chol/HDL Ratio 3.8; Globulin 1.8 g/dL (1.6-3.3); LDL Cholesterol,Calculated 119.6 mg/dL (0.0-131.0); Potassium 4.5 mmol/L (3.5-5.5); Total Bilirubin 0.6 mg/dL (0.2-1.2); Total Protein 6.1 g/dL (6.2-8.2); VLDL Calculation 20.4 mg/dL (5.00-40.00)
== END | disposition home or self-care (01) ==
LOC: LABWHC1 10:45
PROVIDERS: ATTEND Orthopaedic Surgery Adult Reconstructive Orthopaedic Surgery
DX: Z00.00 Encounter for general adult medical examination without abnormal findings (principal); N52.9 Male erectile dysfunction, unspecified; I10 Essential (primary) hypertension; Z01.818 Encounter for other preprocedural examination
CPT/HCPCS: 36415; 80053; 80061; 84153; 85025; 85610; 85730; 86850; 86900; 86901; 87070

== ENCOUNTER → 2019-04-11 | Outpatient (CLI) | payer OTHER ==
--- NOTE | 2019-04-11 14:13 | US ---
EXAMINATION TYPE: US venous doppler duplex LE RT DATE OF EXAM: 04/11/2019 10:25 AM COMPARISON: NONE CLINICAL HISTORY: 54-year-old male with right lower ext, R22.41 swelling. SIDE PERFORMED: Right TECHNIQUE: The lower extremity deep venous system is examined utilizing real time linear array sonog arun with graded compression, doppler sonography and color-flow sonography. FINDINGS: VESSELS IMAGED: External Iliac Vein (EIV) Common Femoral Vein Deep Femoral Vein Greater Saphenous Vein * Femoral Vein Popliteal Vein Small Saphenous Vein * Proximal Calf Veins (* superficial vessels) Right Leg: Negative for DVT IMPRESSION: No evidence for DVT within the right lower extremity imaged from the groin to the upper calf.
== END | disposition home or self-care (01) ==
LOC: RADUSWWP 10:02
PROVIDERS: ATTEND Family Medicine
DX: R22.41 Localized swelling, mass and lump, right lower limb (principal); Z88.0 Allergy status to penicillin; Z91.040 Latex allergy status

== ENCOUNTER → 2019-11-03 | Outpatient (CLI) | payer OTHER ==
--- NOTE | 2019-11-03 18:37 | SFUN ---
SLEEP CENTER FOLLOW UP NOTE DATE OF SERVICE: 11/03/2019 This patient is a 54-year-old gentleman who has been followed in Sleep Center for treatment of obstructive sleep apnea-hypopnea syndrome. The patient continues to use his CPAP equipment every night for the whole night. No snoring with the machine. [place] Sleepiness Scale today is 5. I checked his CPAP unit. CPAP pressure is 10.6. Usage is 24/30 nights and 23/30 nights for more than 4 hours. Average usage 6.3 hours per night. Leak is 26 L/minute. Apnea- hypopnea index is 1.3, which is perfect. MEDICATIONS: Losartan. PHYSICAL EXAMINATION: GENERAL: A pleasant patient in no distress. VITAL SIGNS: BP 114/69, HR 88, RR 15, height 6 feet 2 inches, weight 307, BMI 39.4. The patient lost one pound since his last visit. Temperature 97.5, oxygen saturation at room air 97%. HEENT: PERRLA, EOMI. Evaluation of oropharynx showed tongue protrudes midline. Low position of soft palate. Mallampati IV. NECK: Supple. No JVD. Thyroid is not palpable. LUNGS: Clear to percussion and to auscultation. Good air exchange. No wheezing or rhonchi. HEART: S1, S2 regular. No murmurs, gallops or rubs. ABDOMEN: Obese. EXTREMITIES: No clubbing or cyanosis. ENVIRONMENTAL SERVICES PROJECT MANAGER: Awake, alert, and oriented X3. Cranial nerves 2 to 7 intact. There is no fasciculation or atrophy. noted. No focal deficits observed. IMPRESSION: 1. Obstructive sleep apnea-hypopnea syndrome. Patient demonstrated good compliance with treatment, benefitting from treatment. 2. Hypertension. 3. Obesity. 4. History of periodic limb movements during titration. No clinical symptoms of periodic limb movements at the present time. PLAN: 1. Patient will continue to use PAP equipment every night for the whole night. 2. Sleep hygiene with regular time in bed for at least 7-1/2 to 8 hours. 3. Precautions related to driving. No driving if feeling sleepiness. 4. I will maintain all necessary prescription for PAP supplies including mask, tube, filters. 5. Watching weight. 6. No driving if feeling sleepiness. 7. Follow-up visit in 6 months or earlier if patient has any problems. Thank you very much for allowing me to participate in the management of your patient. Sincerely, Stan Clemens MD, PhD, FAASM Diplomat of [employer] [employer] Special[employer] [employer] Medicine Shop Firer/Fireman of [facility] [place] MMMORENITA / LORRI: [id number] /
== END | disposition home or self-care (01) ==
LOC: SLEEP 15:00
PROVIDERS: ATTEND Internal Medicine
DX: G47.33 Obstructive sleep apnea (adult) (pediatric) (principal); I10 Essential (primary) hypertension; E66.9 Obesity, unspecified; Z99.89 Dependence on other enabling machines and devices; Z87.898 Personal history of other specified conditions

== ENCOUNTER → 2020-05-03 | Outpatient (CLI) | payer OTHER ==
--- NOTE | 2020-05-03 17:19 | SFUN ---
SLEEP CENTER FOLLOW UP NOTE DATE OF SERVICE: 05/03/2020 This is a 55-year-old gentleman who has been followed in Sleep Center for treatment of obstructive sleep apnea-hypopnea syndrome. Patient continued to use his CPAP equipment every night for the whole night and still sometimes he has episodes of snoring while using his CPAP equipment. [place] Sleepiness Scale is 4, which is normal. I checked his CPAP unit. Pressure is 10.6 cm of water. Usage is 26/30 nights and 23/30 nights for more than 4 hours. Leak is 29 L/minute, which is moderate. Apnea-hypopnea index is 1.5, which is totally normal. The patient is using a Simplus medium full-face mask. MEDICATIONS: Losartan 50 mg once a day. PHYSICAL EXAMINATION: GENERAL: A pleasant patient in no distress. VITAL SIGNS: BP 142/80, HR 80, RR 15, height 6 feet 2 inches, weight 317.2, temperature 98.1, oxygen saturation at room air 98%. HEENT: PERRLA, EOMI. Evaluation of oropharynx showed tongue protrudes midline. Extremely low position of soft palate. Mallampati IV. NECK: Supple. No JVD. Thyroid is not palpable. LUNGS: Clear to percussion and to auscultation. Good air exchange. No wheezing or rhonchi. HEART: S1, S2 regular. No murmurs, gallops or rubs. ABDOMEN: Obese. EXTREMITIES: No clubbing or cyanosis. ACCOUNTING COORDINATOR: Awake, alert, and oriented X3. Cranial nerves 2 to 7 intact. There is no fasciculation or atrophy. noted. No focal deficits observed. IMPRESSION: 1. Obstructive sleep apnea-hypopnea syndrome. Patient demonstrated close to 100% compliance with treatment, benefitting from treatment. Episodes of snoring while using CPAP equipment. 2. Hypertension. 3. Obesity. 4. History of periodic limb movements during titration. No clinical symptoms of PLMS. PLAN: 1. I changed regimen of the machine to automatic, with range of the pressure 10 to 14 cm of water, to prevent any snoring. 2. Patient will continue to use PAP equipment every night for the whole night. 3. Sleep hygiene with regular time in bed for at least 7-1/2 to 8 hours. 4. Precautions related to driving. No driving if feeling sleepiness. 5. I will maintain all necessary prescription for PAP supplies including mask, tube, filters. 6. Watching weight. 7. Follow-up visit in 6 months or earlier if patient has any problems. Thank you very much for allowing me to participate in the management of your patient. Sincerely, Stan Clemens MD, PhD, FAASM Diplomat of [employer] Specialties [employer] Board of Internal Medicine Sports Intern of [facility] [place] MMODL / DIONNEN: [id number] /
== END ==
LOC: SLEEP 14:46
PROVIDERS: ATTEND Internal Medicine
DX: G47.33 Obstructive sleep apnea (adult) (pediatric) (principal); I10 Essential (primary) hypertension; E66.9 Obesity, unspecified; Z99.89 Dependence on other enabling machines and devices

== ENCOUNTER → 2020-12-13 | Outpatient (CLI) | payer OTHER ==
--- NOTE | 2020-12-13 17:48 | SFUN ---
SLEEP CENTER FOLLOW UP NOTE DATE OF SERVICE: 12/13/2020 This 55-year-old gentleman has been followed in Sleep Center for treatment of obstructive sleep apnea-hypopnea syndrome. The patient continues to use CPAP equipment. At present he has two CPAP machine. One he has at home and another one he has at his daughter's house. I checked both CPAP units. The CPAP unit which the patient has at home is in automatic regimen; range of the pressure 10 to 14, average pressure 12.1. The patient used it 13/30 nights and 10/30 nights for more than 4 hours, average 5.2 hours per night. Leak is 37 L/minute. Apnea-hypopnea index is 1.7, which is totally normal. His second machine the patient used 10/30 nights, and this is more than 4 hours per night. Average 6.6 hours per night. This machine does not have an automatic regimen option. Pressure in the machine is 10.6. Leak is 24 L/minute. Apnea-hypopnea index 2.0, which is normal. [place] Sleepiness Scale is 3, which is perfect. MEDICATIONS: Losartan 50 mg once a day. PHYSICAL EXAMINATION: GENERAL: Pleasant patient in no distress. VITAL SIGNS: BP 127/83, HR 71, RR 16, height 6 feet 1-3/4 inches, weight 312.8, body mass index 40.3, temperature 97.4. HEENT: PERRLA, EOMI, evaluation of oropharynx showed tongue protrudes midline. Extremely low position of soft palate; Mallampati IV. NECK: Supple, no JVD. Thyroid is not palpable. LUNGS: Clear to percussion and to auscultation. Good air exchange. No wheezing or rhonchi. HEART: S1, S2 regular. No murmurs, gallops, or rubs. ABDOMEN: Obese. EXTREMITIES: No clubbing or cyanosis. STOCK TAKER: Awake, alert, and oriented X3. Cranial nerves 2 to 7 intact. There is no fasciculation or atrophy. noted. No focal deficits observed. IMPRESSION: 1. Obstructive sleep apnea-hypopnea syndrome. The patient demonstrated good compliance with treatment, benefitting from treatment. 2. Hypertension. 3. Obesity. 4. History of periodic limb movements. At present no complaints of any leg movements at night. PLAN: 1. Patient will continue to use PAP equipment every night for the whole night. 2. Sleep hygiene with regular time in bed for at least 7-1/2 to 8 hours. 3. Precautions related to driving. No driving if feeling sleepiness. 4. I will maintain all necessary prescription for PAP supplies including mask, tube, filters. 5. Watching weight. 6. Follow-up visit in 6 months or earlier if patient has any problems. Thank you very much for allowing me to participate in the management of your patient. Sincerely, Stan Clemens MD, PhD, FAASM Diplomat of [place] [employer] Sleep Medicine Board of [place] Board of Internal Medicine Content Publisher of [facility] [place] MMODL / IJN: [id number] /
== END | disposition home or self-care (01) ==
LOC: SLEEP 10:03
PROVIDERS: ATTEND Internal Medicine
DX: G47.33 Obstructive sleep apnea (adult) (pediatric) (principal); I10 Essential (primary) hypertension; E66.9 Obesity, unspecified

== ENCOUNTER → 2021-06-12 | Outpatient (CLI) | payer MEDICARE, OTHER ==
--- NOTE | 2021-06-12 12:41 | SFUN ---
SLEEP CENTER FOLLOW UP NOTE DATE OF SERVICE: 06/12/2021 This 56-year-old gentleman has been followed in Sleep Center for treatment of obstructive sleep apnea-hypopnea syndrome. The patient continues to use his CPAP equipment every night for the whole night. Recently he has been told by his that sometimes he does snore with the machine. [place] Sleepiness Scale today is 3. I checked his CPAP unit. Range of the pressure is 10 to 14, average pressure 11.9, usage /30 nights and 25/30 nights for more than 4 hours, average 6 hours per night; good compliance. Leak is increased to 43 L/minute. Apnea-hypopnea index is only 1.3, which is totally normal. MEDICATIONS: Losartan 50 mg once a day. PHYSICAL EXAMINATION: GENERAL: Pleasant patient in no distress. VITAL SIGNS: BP 148/78, HR 71, RR 16, weight 319.2, temperature 96.9, oxygen saturation at room air 97%. Height 6 feet and 1-3/4 inches. The patient's weight increased by 7 pounds compared to the previous visit. HEENT: PERRLA, EOMI, evaluation of oropharynx showed tongue protrudes midline. Extremely low position of soft palate; Mallampati IV. NECK: Supple, no JVD. Thyroid is not palpable. LUNGS: Clear to percussion and to auscultation. Good air exchange. No wheezing or rhonchi. HEART: S1, S2 regular. No murmurs, gallops, or rubs. ABDOMEN: Obese. EXTREMITIES: No clubbing or cyanosis. AUDIO ENGINEER: Awake, alert, and oriented X3. Cranial nerves 2 to 7 intact. There is no fasciculation or atrophy. noted. No focal deficits observed. IMPRESSION: 1. Obstructive sleep apnea-hypopnea syndrome. Patient continues to demonstrate great compliance with treatment, benefitting from treatment. Occasional snoring on CPAP. Respiration is normal. 2. Hypertension. 3. Obesity; patient's weight increased by 7 pounds. 4. History of periodic limb movements. No complaints of leg movements at the present time. PLAN: 1. I changed pressure in the CPAP unit to the range of 10 to 16 cm of water. 2. Patient will continue to use PAP equipment every night for the whole night. 3. Sleep hygiene with regular time in bed for at least 7-1/2 to 8 hours. 4. Precautions related to driving. No driving if feeling sleepiness. 5. I will maintain all necessary prescription for PAP supplies including mask, tube, filters. 6. Watching weight. 7. Follow-up visit in 6 months or earlier if patient has any problems. Thank you very much for allowing me to participate in the management of your patient. Sincerely, Stan Clemens MD, PhD, FAASM Diplomat of [employer] [employer] Specialties Sleep Medicine Board of [place] Board of Internal Medicine Campaign Coordinator of [facility] [place] MMODL / DIONNEN: [id number] /
== END | disposition home or self-care (01) ==
LOC: SLEEP 10:15
PROVIDERS: ATTEND Internal Medicine
DX: G47.33 Obstructive sleep apnea (adult) (pediatric) (principal); I10 Essential (primary) hypertension; E66.9 Obesity, unspecified

== ENCOUNTER 2021-08-01 08:12 | Day surgery (SDC) | payer MEDICARE, OTHER ==
[2021-07-30 17:41] VITALS: BMI 39.8
[~2021-08-01 08:12] MED LIST: LACTATED RINGERS 1,000 ML IV SCH
[2021-08-01 08:49] VITALS: TEMP 97.6
[2021-08-01] MEDS ORDERED: PROPOFOL 10 MG/ML 20 ML VIAL IV ONE (09:36)
[2021-08-01] MEDS ORDERED: LIDOCAINE 2% INJ 20 MG/ML (2 ML VIAL) ONE (09:36)
--- NOTE | 2021-08-01 09:36 | P.GSHP ---
History of Present Illness H&P Date: 08/01/21 Chief Complaint: Screening colonoscopy This a 56-year-old male who presents today for screening colonoscopy. Patient denies a significant GI complaints. Past Medical History Past Medical History: Hypertension, Osteoarthritis (OA) History of Any Multi-Drug Resistant Organisms: None Reported Past Surgical History: Joint Replacement, Orthopedic Surgery Additional Past Surgical History / Comment(s): rosa knee arthroscopy, left eye sx (muscle), COLONOSCOPY, LT CLOVER, LT ROTATOR CUFF REPAIR, RT HAND TRIGGER FINGER RELEASE, Past Anesthesia/Blood Transfusion Reactions: No Reported Reaction Smoking Status: Never smoker - Past Family History Father Family Medical History: Cancer Additional Family Medical History / Comment(s): stomach Mother Family Medical History: Deep Vein Thrombosis (DVT) Medications and Allergies Home Medications Medication Instructions Recorded Confirmed Type Losartan-Hctz 50-12.5 mg [Hyzaar 1 tab PO DAILY 07/30/21 08/01/21 History 50-12.5] Allergies Allergy/AdvReac Type Severity Reaction Status Date / Time latex Allergy Anaphylaxis Verified 08/01/21 08:54 Penicillins Allergy Rash/Hives Verified 08/01/21 08:54 Surgical - Exam Vital Signs Temp Pulse Resp BP Pulse Ox 97.6 F 73 18 143/68 97 08/01/21 08:45 08/01/21 08:45 08/01/21 08:45 08/01/21 08:45 08/01/21 08:45 - General well developed, well nourished, no distress - Eyes PERRL - ENT normal pinna - Neck no masses - Respiratory normal expansion - Cardiovascular Rhythm: regular - Abdomen Abdomen: soft, non tender Assessment and Plan Assessment: We'll perform screening colonoscopy
--- NOTE | 2021-08-01 09:56 | P.OP ---
Date of Procedure: 08/01/21 Preoperative Diagnosis: Screening colonoscopy Postoperative Diagnosis: Normal colon Procedure(s) Performed: Colonoscopy Anesthesia: MAC Surgeon: Bunny Pennington Pathology: none sent Condition: stable Disposition: PACU Description of Procedure: PROCEDURE: The patient was placed on the endoscopy table in the lateral position. Digital rectal examination was performed which revealed no abnormalities. The prostate was symmetrical without nodules. Flexible colonoscope was then placed in the patient's anus and passed throughout the entire colon. The ileocecal valve was visualized. The cecum, ascending, transverse, descending and sigmoid colon were normal. The rectum was normal as well. There were no masses, polyps or diverticula noted in the entire colon. SUMMARY OF FINDINGS: Normal colonoscopy.
[2021-08-01 10:39] VITALS: BP 102/60; PULSE 90; RESP 20
== END 2021-08-01 11:20 | disposition home or self-care (01) ==
LOC: ORWHC2ENDO 08:12
PROVIDERS: ATTEND Surgery
DX: Z12.11 Encounter for screening for malignant neoplasm of colon (principal); Z80.0 Family history of malignant neoplasm of digestive organs; I10 Essential (primary) hypertension; M19.90 Unspecified osteoarthritis, unspecified site; E66.9 Obesity, unspecified; Z68.39 Body mass index [BMI] 39.0-39.9, adult; Z96.642 Presence of left artificial hip joint; Z98.890 Other specified postprocedural states; Z79.899 Other long term (current) drug therapy; Z88.0 Allergy status to penicillin; Z91.040 Latex allergy status
CPT/HCPCS: J2704; J2001; G0121

== ENCOUNTER → 2022-01-29 | Outpatient (CLI) | payer MEDICARE, OTHER ==
--- NOTE | 2022-01-29 12:24 | P.PN ---
Subjective DATE: 01/29/2022 FOLLOW UP VISIT. Patient with obstructive sleep apnea hypopnea syndrome return to sleep center for follow-up visit. Information from previous visit have been reviewed. Patient is using PAP equipment every night for the whole night, getting PAP supplies in time. The patient does not have significant problems with the mask, PAP unit and humidification. [place] sleepiness scale is 7, which is normal. I checked information from PAP unit. PAP unit pressure 10-16, average 12.1 cm H2O. Usage is 70 % for more then 4 hours, average 5.5 hours per night. Leak is 31 l/m, which is in acceptable range. Apnea Hypopnea Index is 1.3, which is normal. MEDICATIONS:1. Losartan 50 mg once a day 2. Pregabalin 50 mg twice a day During physical exam: GENERAL: A pleasant patient without any distress. VITAL SIGNS: BP 133/87, HR 73, RR 16 , weight 317.8, temperature 97.1, oxygen saturation at room air 98 % . HEENT: PERRLA, EOMI.low position of soft palate, Mallapati 4 . NECK: Supple. No JVD. LUNGS: Clear to percussion and to auscultation. Good air exchange. No wheezing or rhonchi. HEART: S1, S2 regular. ABDOMEN: Soft and nontender. Obese EXTREMITIES: No clubbing or cyanosis. TRAFFIC INSPECTOR: Awake, alert, and oriented x3. No focal deficit. Impressions: 1. Obstructive sleep apnea-hypopnea syndrome. Patient demonstrated borderline compliance with treatment, benefiting from treatment. 2. Obesity. 3. Hypertension. 4. History of periodic limb movements, no clinical symptoms at the present time. Plan: 1. Continue using PAP equipment every night for the whole night. 2. To change air filter at least 1-2 times per month. 3. PAP unit should stay lower then position of the head. 4. Advised patient to remove all remaining water from humidifier canister daily and make it dry after each usage. Refill canister with fresh distilled water before each usage. 5. Sleep hygiene with regular time in bed for at least 8 hours. 6. Precautions related to driving. No driving if feel any sleepiness. 7. I will maintain prescription for PAP supplies including mask, tube, filters. 8. Follow up visit in 6 months or earlier if patient has any problems. 9. Watching and losing weight. Thank you very much for allowing me to participate in the management of your pa tient. Stan Clemens MD, PhD, FAASM. Diplomat of [employer], Sleep Medicine Board by [employer] Board of Internal Medicine Deputy Chief Sheriff of [facility] [place]
== END ==
LOC: SLEEP 10:19
PROVIDERS: ATTEND Internal Medicine
DX: G47.33 Obstructive sleep apnea (adult) (pediatric) (principal); E66.9 Obesity, unspecified; I10 Essential (primary) hypertension; Z86.69 Personal history of other diseases of the nervous system and sense organs; Z91.040 Latex allergy status; Z88.0 Allergy status to penicillin
CPT/HCPCS: 99212

== ENCOUNTER → 2022-07-31 | Outpatient (CLI) | payer MEDICARE ==
--- NOTE | 2022-07-31 10:57 | P.PN ---
Subjective DATE: 07/31/2022 FOLLOW UP VISIT. Patient with obstructive sleep apnea hypopnea syndrome return to sleep center for follow-up visit. Information from previous visit have been reviewed. Patient is using PAP equipment every night for the whole night, getting PAP supplies in time. The patient does not have significant problems with the mask, PAP unit and humidification. [place] sleepiness scale is 4, which is normal. I checked information from PAP unit. PAP unit pressure 10-16, average 12 cm H2O. Usage is 80 % for more then 4 hours, average 5.5 hours per night. Leak is slightly high 40 l/m. Apnea Hypopnea Index is 1.8, which is normal. Pap unit is about 7 year old, may create some noise. MEDICATIONS:1. Pregabalin 50 mg twice a day 2. Flomax 4 mg once a day 3. Losartan 100 mg once a day During physical exam: GENERAL: A pleasant patient without any distress. VITAL SIGNS: BP 138/78, HR 65, RR 16, weight 318, temperature 97.4, oxygen saturation at room air 98 % . HEENT: PERRLA, EOMI.low position of soft palate, Mallapati 4 . NECK: Supple. No JVD. LUNGS: Clear to percussion and to auscultation. Good air exchange. No wheezing or rhonchi. HEART: S1, S2 regular. ABDOMEN: Soft and nontender. Obese EXTREMITIES: No clubbing or cyanosis. MEDICAL PATHOLOGY TEACHER: Awake, alert, and oriented x3. No focal deficit. Impressions: 1. Obstructive sleep apnea-hypopnea syndrome. Patient demonstrated good compliance with treatment, benefiting from treatment. CPAP unit needs to be replaced. 2. Obesity, BMI 40.8. 3. Hypertension. 4. History of periodic limb movements, no clinical symptoms and complains. Plan: 1. Continue using PAP equipment every night for the whole night. Prescription for replacement of CPAP unit was written. 2. To change air filter at least 1-2 times per month. 3. PAP unit should stay lower then position of the head. 4. Advised patient to remove all remaining water from humidifier canister daily and make it dry after each usage. Refill canister with fresh distilled water before each usage. 5. Sleep hygiene with regular time in bed for at least 8 hours. 6. Precautions related to driving. No driving if feel any sleepiness. 7. I will maintain prescription for PAP supplies including mask, tube, filters. 8. Watching and losing weight. 9. Follow up visit in 1-2 months after patient received new CPAP unit. Thank you very much for allowing me to participate in the management of your patient. Stan Clemens MD, PhD, FAASM. Diplomat of [place] [employer], Sleep Medicine Board by [place] [employer] Weatherization Administrator of [facility]
== END ==
LOC: 3 N SLEEP 10:13
PROVIDERS: ATTEND Internal Medicine
DX: G47.33 Obstructive sleep apnea (adult) (pediatric) (principal); E66.9 Obesity, unspecified; Z68.41 Body mass index [BMI] 40.0-44.9, adult; I10 Essential (primary) hypertension; Z99.89 Dependence on other enabling machines and devices; Z91.040 Latex allergy status; Z88.0 Allergy status to penicillin
CPT/HCPCS: 99212

== ENCOUNTER 2022-11-28 13:52 | Observation (INO) | payer MEDICARE ==
--- NOTE | 2022-11-28 15:45 | XR ---
EXAMINATION TYPE: XR chest 2V DATE OF EXAM: 11/28/2022 COMPARISON: 06/24/18 HISTORY: Shortness of breath TECHNIQUE: Frontal and lateral views of the chest are obtained. FINDINGS: Scattered senescent parenchymal changes noted. Hyperinflation compatible with COPD. No evidence for infiltrate. No evidence for atelectasis. Heart size is stable. Mediastinal structures are stable and grossly unremarkable. No evidence for hilar prominence. Degenerative changes dorsal spine. IMPRESSION: 1. No evidence for acute pulmonary disease.
[2022-11-28 16:25] LABS: Basophils % (A) 0 %; Eosinophils # (A) 0.1 k/uL (0-0.7); Eosinophils % (A) 1 %; HCT 44.4 % (39.0-53.0); HGB 14.9 gm/dL (13.0-17.5); Lymphocytes # (A) 1.7 k/uL (1.0-4.8); Lymphocytes % (A) 26 %; MCH 31.6 pg (25.0-35.0); MCHC 33.5 g/dL (31.0-37.0); MCV 94.3 fL (80.0-100.0); Mean Platelet Volume 8.8; Monocytes # (A) 0.4 k/uL (0-1.0); Monocytes % (A) 6 %; Neutrophils # (A) 4.2 k/uL (1.3-7.7); Neutrophils % (A) 65 %; Platelet Count 218 k/uL (150-450); RDW 12.9 % (11.5-15.5); WBC 6.4 k/uL (3.8-10.6)
[2022-11-28 16:39] LABS: INR 0.9 (<1.2); Partial Thromboplastin Time 23.9 sec (22.0-30.0); Prothrombin Time 9.7 sec (9.0-12.0)
[2022-11-28 16:57] LABS: ALT 40 U/L (4-49); AST 32 U/L (17-59); African American GFR (CKD) >90 (>60 ml/min/1.73 sqM); Alkaline Phosphatase 66 U/L (38-126); Anion Gap 7 mmol/L; Blood Urea Nitrogen 14 mg/dL (9-20); Calcium 9.3 mg/dL (8.4-10.2); Carbon Dioxide 28 mmol/L (22-30); Chloride 104 mmol/L (98-107); Glucose 93 mg/dL (74-99); Non-African American GFR(CKD) >90 (>60 ml/min/1.73 sqM); Sodium 139 mmol/L (137-145); Total Bilirubin 0.6 mg/dL (0.2-1.3); Total Protein 6.3 g/dL (6.3-8.2)
[2022-11-28 16:58] LABS: Potassium 4.4 mmol/L (3.5-5.1)
[2022-11-28 17:07] LABS: NT-Pro-B-Type Natriuretic Pept 698 pg/mL
--- NOTE | 2022-11-28 18:39 | CT ---
EXAMINATION TYPE: CT chest angio for PE CT DLP: 1468.6 mGycm, Automated exposure control for dose reduction was used. DATE OF EXAM: 11/28/2022 6:18 PM COMPARISON: Chest radiograph same day. CLINICAL INDICATION:Male, 57 years old with history of eval for PE; SOB and elevated d-dimer TECHNIQUE/CONTRAST: CTA scan of the thorax is performed with IV Contrast, patient injected with 65ml mL of Isovue 370, CA P images are created and reviewed these are created on a separate workstation.. FINDINGS: Pulmonary Artery: There is no evidence for a filling defect within the pulmonary vasculature to sugge st acute pulmonary embolism. The pulmonary artery is of normal size. Lungs/Pleura: No evidence of focal consolidation, pleural effusion or pneumothorax. Airway: Large airways are patent. Heart: The heart is mildly enlarged for size. Vasculature: No evidence of aortic aneurysm. Mediastinum: No gross evidence of adenopathy. Musculoskeletal: Moderate degenerative disc disease changes are present throughout the thoracolumbar spine. Soft Tissues: Unremarkable. Lower neck: No significant findings. Upper Abdomen: No significant findings. IMPRESSION: 1. No evidence of pulmonary embolism. 2. Mild cardiomegaly.
[2022-11-28] MEDS ORDERED: NALOXONE 0.4 MG/ML 1 ML VIAL IV PRN (19:32)
[2022-11-28] MEDS ORDERED: ASPIRIN 81 MG PO STA (19:34)
--- NOTE | 2022-11-28 19:46 | ED ---
General Adult HPI - General Chief complaint: Shortness of Breath Stated complaint: SOB Time Seen by Provider: 11/28/22 15:40 Source: patient, RN notes reviewed, old records reviewed Mode of arrival: ambulatory Limitations: no limitations - History of Present Illness Initial comments: Patient is a 57-year-old male with past medical history remarkable for hypertension presents emergency Department complaining of extreme dyspnea. Has been ongoing for the last week. Was started on Lasix for some feet swelling earlier this week. States the swelling is improved but he still having dyspnea. Denies any fevers, chills, cough. Denies chest pain, abdominal pain, nausea, vomiting. States dyspnea is worse on exertion. Denies orthopnea. Denies PND. Denies any cardiac history. Presents for further evaluation of this time. Denies any history of blood clots.Symptoms have all been acute in onset since Thursday of this week. 4- 5 days of symptoms. - Related Data Home Medications Medication Instructions Recorded Confirmed Cholecalciferol [Vitamin D3 (125 250 mcg PO DAILY 11/28/22 11/28/22 Mcg = 5000 Iu)] Furosemide [Lasix] 20 mg PO DIRECTED 11/28/22 11/28/22 Losartan Potassium 100 mg PO DIRECTED 11/28/22 11/28/22 Lutein 40 mg PO DAILY 11/28/22 11/28/22 Mv-Min/Folic/K1/Lycopen/Lutein 1 tab PO DAILY 11/28/22 11/28/22 [Centrum Silver Men Tablet] Pregabalin [Lyrica] 50 mg PO BID 11/28/22 11/28/22 Super B Complex 1 tab PO DAILY 11/28/22 11/28/22 Allergies Allergy/AdvReac Type Severity Reaction Status Date / Time latex Allergy Anaphylaxis Verified 11/28/22 20:36 Penicillins Allergy Rash/Hives Verified 11/28/22 20:36 Review of Systems ROS Statement: Those systems with pertinent positive or pertinent negative responses have been documented in the HPI. Review of Systems: CONST: Denies fever EYES: Denies blurry vision ENT: Denies nasal congestion C/V: Denies Chest pain RESP: Endorses dyspnea GI: Denies abdominal pain : Denies dysuria SKIN: Denies rash. MSK: Denies joint pain. NEURO: Denies headache ROS Other: All systems not noted in ROS Statement are negative. Past Medical History Past Medical History: Hypertension, Osteoarthritis (OA) History of Any Multi-Drug Resistant Organisms: None Reported Past Surgical History: Joint Replacement, Orthopedic Surgery Additional Past Surgical History / Comment(s): rosa knee arthroscopy, left eye sx (muscle), COLONOSCOPY, LT CLOVER, LT ROTATOR CUFF REPAIR, RT HAND TRIGGER FINGER RELEASE, Past Anesthesia/Blood Transfusion Reactions: No Reported Reaction Past Psychological History: No Psychological Hx Reported Smoking Status: Never smoker Past Alcohol Use History: Rare Past Drug Use History: None Reported - Past Family History Father Family Medical History: Cancer Additional Family Medical History / Comment(s): stomach Mother Family Medical History: Deep Vein Thrombosis (DVT) General Exam - General Exam Comments Initial Comments: General: Appears in no acute distress. HEAD: Normal with no signs of head trauma. EYES: PERRLA, EOMI, conjunctiva normal, no discharge. ENT: Hearing grossly intact, normal oropharynx. RESPIRATORY: Clear breath sounds bilaterally. No wheezes, rales, or rhonchi. No hypoxia C/V: Regular rate and rhythm. S1 and S2 auscultated, no edema, peripheral pulses 2+ and intact throughout ABD: Abd is soft, nontender, nondistended EXT: Normal range of motion, no obvious deformity SKIN: No rashes or lesions observed on exposed skin. NEURO: Alert and oriented x 4. Cranial nerves II-XII intact. No focal sensory or strength deficits. Limitations: no limitations Course Vital Signs 11/28/22 11/28/22 14:06 21:39 Temperature 98.3 F 98.4 F Pulse Rate 69 65 Respiratory 20 18 Rate Blood Pressure 149/63 131/76 O2 Sat by Pulse 98 96 Oximetry Medical Decision Making - Medical Decision Making Was pt. sent in by a medical professional or institution (, PA, [employer], urgent care, hospital, or intermediate...) When possible be specific @ -No Did you speak to anyone other than the patient for history (EMS, parent, family, police, friend...)? What history was obtained from this source @ -No Did you review nursing and triage notes (agree or disagree)? Why? @ -I reviewed and agree with nursing and triage notes Were old charts reviewed (outside hosp., previous admission, EMS record, old EKG, old radiological studies, urgent care reports/EKG's, intermediate records)? Report findings @ -Old charts reviewed Differential Diagnosis (chest pain, altered mental status, abdominal pain women, abdominal pain men, vaginal bleeding, weakness, fever, dyspnea, syncope, headache, dizziness, GI bleed, back pain, seizure, CVA, palpatations, mental health, musculoskeletal)? @ -Differential Dyspnea: Coronary syndrome, arrhythmia, tamponade, asthma, COPD, pulmonary embolism, pneumonia, pneumothorax, pulmonary effusion, anaphylaxis, diabetic ketoacidosis, flailed chest, pulmonary contusion, diaphragmatic rupture, anemia, neuromuscular, this is not meant to be an all-inclusive list. EKG interpreted by me (3pts min.). @ -As above X-rays interpreted by me (1pt min.). @ -Chest x-ray Reveals no obvious acute cardio pulmonary process. CT interpreted by me (1pt min.). @ -CT chest reveals no evidence of pulmonary embolism. U/S interpreted by me (1pt. min.). @ -None done What testing was considered but not performed or refused? (CT, X-rays, U/S, labs)? Why? @ -None What meds were considered but not given or refused? Why? @ -None Did you discuss the management of the patient with other professionals (professionals i.e. , PA, [employer], lab, RT, psych nurse, social work instructor, sort line, teacher, amphibious operations officer, casework specialist)? Give summary @ -Discussed with the admitting team, ERVIN hatfield of [facility] who accepts for Dr. Branch Was smoking cessation discussed for >3mins.? @ -No Was critical care preformed (if so, how long)? @ -No Were there social determinants of health that impacted care today? How? (Homelessness, low income, unemployed, alcoholism, drug addiction, transportation, low edu. Level, literacy, decrease access to med. care, m[facility], rehab)? @ -No Was there de-escalation of care discussed even if they declined (Discuss DNR or withdrawal of care, Hospice)? DNR status @ -No What co-morbidities impacted this encounter? (DM, HTN, Smoking, COPD, CAD, Cancer, CVA, ARF, Chemo, Hep., AIDS, mental health diagnosis, sleep apnea, morbid obesity)? @ -None Was patient admitted / discharged? Hospital course, mention meds given and route, prescriptions, significant lab abnormalities, going to OR and other pertinent info. @ -Based on the patient's presentation and physical exam, presents complaining of dyspnea of unknown etiology. We will obtain cardiac workup. He was in agreement this plan. Vital signs within acceptable limits. EKG shows no signs of acute ischemia. Chest x-ray unremarkable. Laboratory studies remarkable for an undetectable troponin. BNP within acceptable limits. Negative viral swabs. D-dimer is slightly elevated. We will obtain a CT angiogram to evaluate for PE which patient was in agreement with. CT angiogram negative for PE. On reevaluation, I discussed at length the patient's workup. I personally ambulated the patient around the emergency department and she was complaining of subjective dyspnea, although which is acute in onset since Thursday of this week for the last 4 or 5 days. Unknown etiology. Pulse ox remained within acceptable limits at 99%. I discussed with him admission versus discharge to does have a echo arranged for next Thursday but he does not believe he can wait that long. With like to be evaluated. I believe this is reasonable, as I cannot definitively rule out etiology such as pulmonary hypertension without echo. He'll be admitted for cardiology evaluation. Troponins will be trended. Cardiology consulted. I spoke with the accepting physician, ERVIN Hatfield of [facility] who covers Dr. Branch who accepted the patient. Undiagnosed new problem with uncertain prognosis? @ -yes Drug Therapy requiring intensive monitoring for toxicity (Heparin, Nitro, Insulin, Cardizem)? @ -No Were any procedures done? @ -No Diagnosis/symptom? @ -Unexplained Dyspnea Acute, or Chronic, or Acute on Chronic? @ -Acute Uncomplicated (without systemic symptoms) or Complicated (systemic symptoms)? @ -Complicated Side effects of treatment? @ -No Exacerbation, Progression, or Severe Exacerbation? @ -No Poses a threat to life or bodily function? How? (Chest pain, USA, CT, pneumonia, PE, COPD, DKA, ARF, appy, cholecystitis, CVA, Diverticulitis, Homicidal, Suicidal, threat to staff... and all critical care pts) @ -Possibly - Lab Data Result diagrams: 11/28/22 15:59 11/28/22 15:59 Lab Results 11/28/22 11/28/22 11/28/22 Range/Units 15:59 15:59 15:59 WBC 6.4 (3.8-10.6) k/uL RBC 4.70 (4.30-5.90) m/uL Hgb 14.9 (13.0-17.5) gm/dL Hct 44.4 (39.0-53.0) % MCV 94.3 (80.0-100.0) fL MCH 31.6 (25.0-35.0) pg MCHC 33.5 (31.0-37.0) g/dL RDW 12.9 (11.5-15.5) % Plt Count 218 (150-450) k/uL MPV 8.8 Neutrophils % 65 % Lymphocytes % 26 % Monocytes % 6 % Eosinophils % 1 % Basophils % 0 % Neutrophils # 4.2 (1.3-7.7) k/uL Lymphocytes # 1.7 (1.0-4.8) k/uL Monocytes # 0.4 (0-1.0) k/uL Eosinophils # 0.1 (0-0.7) k/uL Basophils # 0.0 (0-0.2) k/uL PT 9.7 (9.0-12.0) sec INR 0.9 (<1.2) APTT 23.9 (22.0-30.0) sec D-Dimer 0.70 H (<0.60) mg/L FEU Sodium 139 (137-145) mmol/L Potassium 4.4 (3.5-5.1) mmol/L Chloride 104 (98-107) mmol/L Carbon Dioxide 28 (22-30) mmol/L Anion Gap 7 mmol/L BUN 14 (9-20) mg/dL Creatinine 0.85 (0.66-1.25) mg/dL Est GFR (CKD-EPI)AfAm >90 (>60 ml/min/1.73 sqM) Est GFR (CKD-EPI)NonAf >90 (>60 ml/min/1.73 sqM) Glucose 93 (74-99) mg/dL Plasma Lactic Acid Johnson (0.7-2.0) mmol/L Calcium 9.3 (8.4-10.2) mg/dL Total Bilirubin 0.6 (0.2-1.3) mg/dL AST 32 (17-59) U/L ALT 40 (4-49) U/L Alkaline Phosphatase 66 (38-126) U/L Troponin I (0.000-0.034) ng/mL NT-Pro-B Natriuret Pep 698 pg/mL Total Protein 6.3 (6.3-8.2) g/dL Albumin 4.0 (3.5-5.0) g/dL Influenza Type A (PCR) (Not Detectd) Influenza Type B (PCR) (Not Detectd) RSV (PCR) (Not Detectd) SARS-CoV-2 (PCR) (Not Detectd) 11/28/22 11/28/22 11/28/22 Range/Units 15:59 15:59 17:00 WBC (3.8-10.6) k/uL RBC (4.30-5.90) m/uL Hgb (13.0-17.5) gm/dL Hct (39.0-53.0) % MCV (80.0-100.0) fL MCH (25.0-35.0) pg MCHC (31.0-37.0) g/dL RDW (11.5-15.5) % Plt Count (150-450) k/uL MPV Neutrophils % % Lymphocytes % % Monocytes % % Eosinophils % % Basophils % % Neutrophils # (1.3-7.7) k/uL Lymphocytes # (1.0-4.8) k/uL Monocytes # (0-1.0) k/uL Eosinophils # (0-0.7) k/uL Basophils # (0-0.2) k/uL PT (9.0-12.0) sec INR (<1.2) APTT (22.0-30.0) sec D-Dimer (<0.60) mg/L FEU Sodium (137-145) mmol/L Potassium (3.5-5.1) mmol/L Chloride (98-107) mmol/L Carbon Dioxide (22-30) mmol/L Anion Gap mmol/L BUN (9-20) mg/dL Creatinine (0.66-1.25) mg/dL Est GFR (CKD-EPI)AfAm (>60 ml/min/1.73 sqM) Est GFR (CKD-EPI)NonAf (>60 ml/min/1.73 sqM) Glucose (74-99) mg/dL Plasma Lactic Acid Johnson 0.9 (0.7-2.0) mmol/L Calcium (8.4-10.2) mg/dL Total Bilirubin (0.2-1.3) mg/dL AST (17-59) U/L ALT (4-49) U/L Alkaline Phosphatase (38-126) U/L Troponin I <0.012 (0.000-0.034) ng/mL NT-Pro-B Natriuret Pep pg/mL Total Protein (6.3-8.2) g/dL Albumin (3.5-5.0) g/dL Influenza Type A (PCR) Not Detected (Not Detectd) Influenza Type B (PCR) Not Detected (Not Detectd) RSV (PCR) Not Detected (Not Detectd) SARS-CoV-2 (PCR) Not Detected (Not Detectd) - EKG Data -: EKG Interpreted by Me EKG Comments: 12-lead Electrocardiogram Interpretation Note EKG was reviewed and interpreted by myself. 12-lead ECG performed at 1628 is interpreted by me as revealing normal sinus rhythm at a rate of 66 beats per minute. Borderline left axis deviation. ND interval is shortened 23 ms, QRS duration is 94 ms, QTc is 401 ms. PVCs are present.. There were no ST or T wave abnormalities to suggest myocardial ischemia or injury. R wave progression across the precordium was satisfactory. By my interpretation this EKG is non- diagnostic for acute ischemia. Disposition Clinical Impression: Dyspnea Disposition: ADMITTED IP TO THIS HOSP Condition: Stable Time of Disposition: 19:25
[2022-11-28] MEDS: HEPARIN SODIUM,PORCINE 5,000 UNIT/ML 1 ML VIAL SQ SCH (23:40)
--- NOTE | 2022-11-29 06:10 | P.CRDCN ---
History of Present Illness Consult date: 11/29/22 Chief complaint: SOB History of present illness: The patient is a very pleasant 57-year-old gentleman with overweight and sleep apnea hypertension who presented to the hospital complaining of shortness of breath and lower extremities edema started about a week ago. Both Progress on him significantly. He gained about 20 pounds. Never had congestive heart failure before. Never seen a fern cutter before. No history of CAD or CHF or cardiac arrhythmia. No symptoms of chest pain or chest discomfort and no dizziness or lightheadedness and no feeling of heart racing or fluttering and no presyncope or syncope. He was receiving Lasix orally as an outpatient and he stated that he has been compliant with his oral diuretics medication in the pressure has been under good control on the current medical regimen. The only changes he stated that he did have a change the machine/CPAP machine few weeks ago. Otherwise he has been compliant with all his medications. The EKG showed sinus mechanism was PVC. Troponin came in to be unremarkable. NT proBNP came in to be 700 but he is overweight and that could be falsely low. An echo was or dered. Currently he is not on any antibiotics. Examination is remarkable for diminished breathing sounds bilaterally and mild bilateral lower extremity/ankle edema Assessment Congestive heart failure of unknown etiology Overweight Hypertension Sleep apnea Plan Start the patient on IV diuretics with Lasix Monitor the kidney function and electrolytes Obtain an echocardiogram was Doppler Monitor the patient for additional 24 hours Past Medical History Past Medical History: Hypertension, Osteoarthritis (OA) Additional Past Medical History / Comment(s): MIGUEL A, CPAP at night. History of Any Multi-Drug Resistant Organisms: None Reported Past Surgical History: Joint Replacement, Orthopedic Surgery Additional Past Surgical History / Comment(s): rosa knee arthroscopy, left eye sx (muscle), COLONOSCOPY, LT CLOVER, LT ROTATOR CUFF REPAIR, RT HAND TRIGGER FINGER RELEASE, Past Anesthesia/Blood Transfusion Reactions: No Reported Reaction Past Psychological History: No Psychological Hx Reported Smoking Status: Never smoker Past Alcohol Use History: Rare Past Drug Use History: None Reported - Past Family History Father Family Medical History: Cancer Additional Family Medical History / Comment(s): stomach Mother Family Medical History: Deep Vein Thrombosis (DVT) Medications and Allergies Home Medications Medication Instructions Recorded Confirmed Type Cholecalciferol [Vitamin D3 (125 250 mcg PO DAILY 11/28/22 11/28/22 History Mcg = 5000 Iu)] Furosemide [Lasix] 20 mg PO DIRECTED 11/28/22 11/28/22 History Losartan Potassium 100 mg PO DIRECTED 11/28/22 11/28/22 History Lutein 40 mg PO DAILY 11/28/22 11/28/22 History Mv-Min/Folic/K1/Lycopen/Lutein 1 tab PO DAILY 11/28/22 11/28/22 History [Centrum Silver Men Tablet] Pregabalin [Lyrica] 50 mg PO BID 11/28/22 11/28/22 History Super B Complex 1 tab PO DAILY 11/28/22 11/28/22 History Allergies Allergy/AdvReac Type Severity Reaction Status Date / Time latex Allergy Anaphylaxis Verified 11/28/22 20:36 Penicillins Allergy Rash/Hives Verified 11/28/22 20:36 Physical Exam Vitals: Vital Signs Temp Pulse Pulse Resp BP BP Pulse Ox 11/29/22 01:40 97.2 F L 60 16 127/76 98 11/28/22 21:45 97.7 F 57 L 16 157/81 95 11/28/22 21:39 98.4 F 65 18 131/76 96 11/28/22 14:06 98.3 F 69 20 149/63 98 Intake and Output 11/28/22 11/28/22 11/29/22 14:59 22:59 06:59 Other: # Voids 0 1 Weight 148.325 kg 148.325 kg Results 11/28/22 15:59 11/28/22 15:59 Cardiac Enzymes 11/28/22 11/28/22 11/28/22 Range/Units 15:59 15:59 20:26 AST 32 (17-59) U/L Troponin I <0.012 <0.012 (0.000-0.034) ng/mL 11/28/22 Range/Units 23:36 AST (17-59) U/L Troponin I <0.012 (0.000-0.034) ng/mL Coagulation 11/28/22 Range/Units 15:59 PT 9.7 (9.0-12.0) sec APTT 23.9 (22.0-30.0) sec CBC 11/28/22 Range/Units 15:59 WBC 6.4 (3.8-10.6) k/uL RBC 4.70 (4.30-5.90) m/uL Hgb 14.9 (13.0-17.5) gm/dL Hct 44.4 (39.0-53.0) % Plt Count 218 (150-450) k/uL Comprehensive Metabolic Panel 11/28/22 Range/Units 15:59 Sodium 139 (137-145) mmol/L Potassium 4.4 (3.5-5.1) mmol/L Chloride 104 (98-107) mmol/L Carbon Dioxide 28 (22-30) mmol/L BUN 14 (9-20) mg/dL Creatinine 0.85 (0.66-1.25) mg/dL Glucose 93 (74-99) mg/dL Calcium 9.3 (8.4-10.2) mg/dL AST 32 (17-59) U/L ALT 40 (4-49) U/L Alkaline Phosphatase 66 (38-126) U/L Total Protein 6.3 (6.3-8.2) g/dL Albumin 4.0 (3.5-5.0) g/dL Current Medications Generic Name Dose Route Start Last Admin Trade Name Freq PRN Reason Stop Dose Admin Cholecalciferol 250 mcg 11/29/22 09:00 Cholecalciferol 125 Mcg (5000 Iu) Tablet PO DAILY [facility] Heparin Sodium (Porcine) 5,000 unit 11/29/22 00:00 11/28/22 23:40 Heparin Sodium,Porcine 5,000 Unit/Ml 1 Ml Vial SQ Not Given Q8HR MACK Losartan Potassium 100 mg 11/29/22 09:00 Losartan 50 Mg Tab PO DAILY [facility] Multivitamins 1 each 11/29/22 09:00 Multivitamins, Thera 1 Each Tab PO DAILY MACK Naloxone HCl 0.2 mg 11/28/22 19:32 Naloxone 0.4 Mg/Ml 1 Ml Vial IV Q2M PRN Opioid Reversal Pregabalin 50 mg 11/29/22 09:00 Pregabalin 50 Mg Cap PO BID MACK Intake and Output 11/28/22 11/28/22 11/29/22 14:59 22:59 06:59 Other: # Voids 0 1 Weight 148.325 kg 148.325 kg Patient Weight 11/29/22 06:59 Weight 148.325 kg 11/28/22 15:59 11/28/22 15:59
[2022-11-29] MEDS: LOSARTAN 50 MG TAB PO SCH (08:58)
[2022-11-29] MEDS: FUROSEMIDE 10 MG/ML 4 ML VIAL IV SCH ×2 (08:58→19:43)
[2022-11-29] MEDS: CHOLECALCIFEROL 125 MCG (5000 IU) TABLET PO SCH (08:59)
[2022-11-29] MEDS: PREGABALIN 50 MG CAP PO SCH ×2 (08:59→19:42)
[2022-11-29] MEDS: HEPARIN SODIUM,PORCINE 5,000 UNIT/ML 1 ML VIAL SQ SCH ×3 (08:59→23:36)
[2022-11-29] MEDS: MULTIVITAMINS, THERA 1 EACH TAB PO SCH (08:59)
[2022-11-29] MEDS ORDERED: NON FORMULARY DRUG (Lutein [Lutein] 20 MG Capsule) PO SCH (09:00)
[2022-11-29] MEDS ORDERED: NON FORMULARY DRUG (Super B Complex 1 TAB) PO SCH (09:00)
[2022-11-29 10:01] LABS: Basophils # (A) 0.02 X 10*3/uL (0.00-0.10); Basophils % (A) 0.3 %; Eosinophils # (A) 0.06 X 10*3/uL (0.04-0.35); HCT 43.3 % (39.6-50.0); HGB 14.6 d/dL (13.0-17.0); Lymphocytes # (A) 1.47 X 10*3/uL (0.90-5.00); Lymphocytes % (A) 25.3 %; MCH 31.8 pg (27.0-32.0); MCHC 33.7 d/dL (32.0-37.0); MCV 94.3 FL (80.0-97.0); Mean Platelet Volume 12.1 FL (9.5-12.2); Monocytes # (A) 0.56 X 10*3/uL (0.20-1.00); Monocytes % (A) 9.7 %; NRBC Per 100 WBC 0 X 10*3/uL (0.00-0.01); Neutrophils # (A) 3.68 X 10*3/uL (1.80-7.70); Neutrophils % (A) 63.5 %; Platelet Count 223 X 10*3/uL (140-440); RBC 4.59 X 10*6/uL (4.40-5.60)
[2022-11-29 10:07] LABS: Blood Urea Nitrogen 16.4 mg/dL (9.0-27.0); Calcium 9.1 mg/dL (8.7-10.3); Carbon Dioxide 27.9 mmol/L (21.6-31.8); Chloride 106 mmol/L (96-109); Glucose 102 mg/dL (70-110); Potassium 4.6 mmol/L (3.5-5.5); Sodium 144 mmol/L (135-145)
--- NOTE | 2022-11-29 13:09 | CA ---
Transthoracic Echo Report Name: Eladio Flaherty Age: 57 Gender: M : 1965 Exam Date: 11/29/2022 08:37 Exam Location: [facility] [facility] Ht (in): 74 Wt (lb): 327 Ordering Physician: Karel Lundy MD Attending/Referring Phys: Supervisor Statement Clerks Bárbara Restrepo RDCS Procedure CPT: Indications: dyspnea Cardiac Hx: Technical Quality: Technically difficult study Contrast 1: Lumason Total Dose (mL): 3 Contrast 2: Total Dose (mL): MEASUREMENTS (Male / Female) Normal Values 2D ECHO LV Diastolic Diameter PLAX 5.0 cm 4.2 - 5.9 / 3.9 - 5.3 cm LV Systolic Diameter PLAX 3.8 cm IVS Diastolic Thickness 1.5 cm 0.6 - 1.0 / 0.6 - 0.9 cm LVPW Diastolic Thickness 1.5 cm 0.6 - 1.0 / 0.6 - 0.9 cm LV Relative Wall Thickness 0.6 RV Internal Dim ED PLAX 3.6 cm LA Systolic Diameter LX 4.2 cm 3.0 - 4.0 / 2.7 - 3.8 cm LA Volume 78.2 cm??? 18 - 58 / 22 - 52 cm??? LA Volume Index 27.5 cm???/m??? 16 - 28 cm???/m??? M-MODE Aortic Root Diameter MM 3.6 cm MV E Point Septal Separation 1.1 cm AV Cusp Separation MM 2.7 cm DOPPLER AV Peak Velocity 109.1 cm/s AV Peak Gradient 4.8 mmHg MV Area PHT 4.3 cm??? Mitral E Point Velocity 81.5 cm/s Mitral A Point Velocity 74.6 cm/s Mitral E to A Ratio 1.1 MV Deceleration Time 177.2 ms MV E' Velocity 9.1 cm/s Mitral E to MV E' Ratio 9.0 FINDINGS Left Ventricle Left ventricular ejection fraction is estimated at 40-45 %. Left ventricular cavity size normal. Moderately increased septal wall thickness. Right Ventricle Mild right ventricular dilatation. Unable to estimate the right ventricular systolic pressure. Right Atrium Normal right atrial size. Left Atrium Mildly increased left atrial diameter. Moderately increased left atrial volume. Mildly increased left atrial area. Mitral Valve Mitral annular calcification. Trace to mild mitral regurgitation. Aortic Valve Trileaflet aortic valve. No aortic valve stenosis or regurgitation. Tricuspid Valve Structurally normal tricuspid valve. No tricuspid regurgitation. Pulmonic Valve Pulmonic valve not well visualized. Pericardium No pericardial effusion. Aorta Normal size aortic root and proximal ascending aorta. CONCLUSIONS Technically difficult study Mildly impaired LV function with EF between 40-45% Previewed by: Dr. Art Gómez MD (Electronically Signed) Final Date: 29 November 2022 13:08
--- NOTE | 2022-11-29 13:32 | P.HPIM ---
History of Present Illness H&P Date: 11/29/22 Chief Complaint: Shortness of breath and lower extremity swelling * 57-year-old gentleman with past medical history significant for hypertension presents to the emergency department with complaints of shortness of breath and lower extremity edema patient states he denies any cardiac issues however he has noted that he had gained significant amount of weight. Approximately about 25 pounds. Patient does have history of obstructive sleep apnea * At the time of presentation patient had hematology done which was essentially normal with normal WBC, hemoglobin platelet count. Patient had serum chemistry done which was essentially negative as well. He had serial troponins done in ED which were negative * Patient had proBNP of 698, tested negative for influenza and Covid * While in ER patient had a CT chest done which showed cardiomegaly however negative for pulmonary embolism * Patient denies associated fever, chills, cough, chest pain, nausea, vomiting, diarrhea REVIEW OF SYSTEMS: Shortness of breath, weight gain, lower extremity edema CONSTITUTIONAL: No fever, no malaise, no fatigue. HEENT: No recent visual problems or hearing problems. Denied any sore throat. CARDIOVASCULAR: No chest pain, orthopnea, PND, no palpitations, no syncope. PULMONARY: No , no cough, no hemoptysis. GASTROINTESTINAL: No diarrhea, no nausea, no vomiting, no abdominal pain. NEUROLOGICAL: No headaches, no weakness, no numbness. HEMATOLOGICAL: Denies any bleeding or petechiae. GENITOURINARY: Denies any burning micturition, frequency, or urgency. MUSCULOSKELETAL/RHEUMATOLOGICAL: Denies any joint pain, swelling, or any muscle pain. ENDOCRINE: Denies any polyuria or polydipsia. The rest of the 14-point review of systems is negative. PHYSICAL EXAMINATION: GENERAL: The patient is alert and oriented x3, not in any acute distress. HEENT: Pupils are round and equally reacting to light. EOMI. CARDIOVASCULAR: S1 and S2 present. No murmurs, rubs, or gallops. Lower extremity edema PULMONARY: Chest is clear to auscultation, no wheezing or crackles. ABDOMEN: Soft, nontender, nondistended, normoactive bowel sounds. No palpable organomegaly. MUSCULOSKELETAL: No joint swelling or deformity. EXTREMITIES: No cyanosis, clubbing, or pedal edema. NEUROLOGICAL: Gross neurological examination did not reveal any focal deficits. SKIN: No rashes. Past Medical History Past Medical History: Hypertension, Osteoarthritis (OA) Additional Past Medical History / Comment(s): MIGUEL A, CPAP at night. History of Any Multi-Drug Resistant Organisms: None Reported Past Surgical History: Joint Replacement, Orthopedic Surgery Additional Past Surgical History / Comment(s): rosa knee arthroscopy, left eye sx (muscle), COLONOSCOPY, LT CLOVER, LT ROTATOR CUFF REPAIR, RT HAND TRIGGER FINGER RELEASE, Past Anesthesia/Blood Transfusion Reactions: No Reported Reaction Past Psychological History: No Psychological Hx Reported Smoking Status: Never smoker Past Alcohol Use History: Rare Past Drug Use History: None Reported - Past Family History Father Family Medical History: Cancer Additional Family Medical History / Comment(s): stomach Mother Family Medical History: Deep Vein Thrombosis (DVT) Medications and Allergies Home Medications Medication Instructions Recorded Confirmed Type Cholecalciferol [Vitamin D3 (125 250 mcg PO DAILY 11/28/22 11/28/22 History Mcg = 5000 Iu)] Furosemide [Lasix] 20 mg PO DAILY 11/28/22 11/29/22 History Lutein 40 mg PO DAILY 11/28/22 11/28/22 History Mv-Min/Folic/K1/Lycopen/Lutein 1 tab PO DAILY 11/28/22 11/28/22 History [Centrum Silver Men Tablet] Pregabalin [Lyrica] 50 mg PO BID 11/28/22 11/28/22 History Super B Complex 1 tab PO DAILY 11/28/22 11/28/22 History Losartan/Hydrochlorothiazide 1 tab PO DAILY 11/29/22 11/29/22 History [Losartan-Hctz 100-12.5 mg Tab] Allergies Allergy/AdvReac Type Severity Reaction Status Date / Time latex Allergy Anaphylaxis Verified 11/28/22 20:36 Penicillins Allergy Rash/Hives Verified 11/28/22 20:36 Physical Exam Vitals: Vital Signs Temp Pulse Pulse Resp BP BP Pulse Ox 11/29/22 07:00 98.0 F 56 L 17 133/65 98 11/29/22 01:40 97.2 F L 60 16 127/76 98 11/28/22 21:45 97.7 F 57 L 16 157/81 95 11/28/22 21:39 98.4 F 65 18 131/76 96 11/28/22 14:06 98.3 F 69 20 149/63 98 Intake and Output 11/28/22 11/29/22 11/29/22 22:59 06:59 14:59 Other: # Voids 0 1 Weight 148.325 kg Results CBC & Chem 7: 11/29/22 06:24 11/29/22 06:24 Labs: Abnormal Lab Results - Last 24 Hours (Table) 11/28/22 Range/Units 15:59 D-Dimer 0.70 H (<0.60) mg/L FEU Assessment and Plan Assessment: Assessment and plan * New onset congestive heart failure * Morbid obesity * Obstructive sleep apnea * Hypertension * Consultations obtained from cardiology, patient had serial troponins done which were negative, CTA chest negative for pulmonary embolism echocardiogram ordered * Echocardiogram ordered, patient started on IV Lasix, Klor-Con renal profile while on diuresis * In regards to history of obstructive sleep apnea continue patient on CPAP * Gerardo history of hypertension continue patient on Cozaar * Status is full code
--- NOTE | 2022-11-30 07:29 | P.PN ---
Subjective Progress Note Date: 11/30/22 Principal diagnosis: CHF The patient is a very pleasant 57-year-old gentleman with overweight and sleep apnea hypertension who presented to the hospital complaining of shortness of breath and lower extremities edema started about a week ago. Both Progress on him significantly. He gained about 20 pounds. Never had congestive heart failure before. Never seen a toolmaker before. No history of CAD or CHF or cardiac arrhythmia. No symptoms of chest pain or chest discomfort and no dizziness or lightheadedness and no feeling of heart racing or fluttering and no presyncope or syncope. He was receiving Lasix orally as an outpatient and he stated that he has been compliant with his oral diuretics medication in the pressure has been under good control on the current medical regimen. The only changes he stated that he did have a change the machine/CPAP machine few weeks ago. Otherwise he has been compliant with all his medications. The EKG showed sinus mechanism was PVC. Troponin came in to be unremarkable. NT proBNP came in to be 700 but he is overweight and that could be falsely low. An echo was ordered. Currently he is not on any antibiotics. 12/01/2019 The patient was seen and evaluated this morning. He is feeling better. The edema has improved. The echo showed cardiomyopathy with EF between 45-50%. He is on losartan already. His heart rate has been on the slow side selective started on any beta charbel. The cardiac standpoint of view, the patient can be discharged home Examination is remarkable for diminished breathing sounds bilaterally and mild bilateral lower extremity/ankle edema Assessment Congestive heart failure of unknown etiology Mild cardiomyopathy to be investigated as an outpatient Overweight Hypertension Sleep apnea Plan Continue the current medical regimen The patient can be discharged home Objective - Vital Signs Vital signs: Vital Signs Temp 97.5 F L 11/30/22 01:53 Pulse 45 L 11/30/22 01:53 Resp 16 11/30/22 01:53 BP 124/59 11/30/22 01:53 Pulse Ox 98 11/30/22 01:53 FiO2 Intake & Output 11/29/22 11/30/22 11/30/22 18:59 06:59 18:59 Intake Total 500 Balance 500 Intake: Oral 500 Other: # Voids 1 5 - Labs CBC & Chem 7: 11/29/22 06:24 11/29/22 06:24
[2022-11-30] MEDS: HEPARIN SODIUM,PORCINE 5,000 UNIT/ML 1 ML VIAL SQ SCH (08:40)
[2022-11-30] MEDS ORDERED: FUROSEMIDE 40 MG TAB PO SCH (09:00)
[2022-11-30] MEDS: LOSARTAN 50 MG TAB PO SCH (09:01)
[2022-11-30] MEDS: PREGABALIN 50 MG CAP PO SCH (09:01)
[2022-11-30] MEDS: CHOLECALCIFEROL 125 MCG (5000 IU) TABLET PO SCH (09:01)
[2022-11-30] MEDS: MULTIVITAMINS, THERA 1 EACH TAB PO SCH (09:01)
--- NOTE | 2022-11-30 09:53 | P.DS ---
Providers Date of admission: 11/28/22 19:32 Expected date of discharge: 11/30/22 Attending physician: Asiya Turner Consults: 11/28/22 19:32 Consult Physician Routine Consulting Provider: [facility] Consult Reason/Comments: unexplained dyspnea Do you want consulting provider notified?: Yes Primary care physician: Virgilio Branch [facility] Course: * 57-year-old gentleman with past medical history significant for hypertension presents to the emergency department with complaints of shortness of breath and lower extremity edema patient states he denies any cardiac issues however he has noted that he had gained significant amount of weight. Approximately about 25 pounds. Patient does have history of obstructive sleep apnea * At the time of presentation patient had hematology done which was essentially normal with normal WBC, hemoglobin platelet count. Patient had serum chemistry done which was essentially negative as well. He had serial troponins done in ED which were negative * Patient had proBNP of 698, tested negative for influenza and Covid * While in ER patient had a CT chest done which showed cardiomegaly however negative for pulmonary embolism * Patient denies associated fever, chills, cough, chest pain, nausea, vomiting, diarrhea * 11/30: Patient had significant improvement post-diuresis, was given IV Lasix, discharge on oral Lasix 40 mg daily. Electrolytes reviewed. Seen by cardiology, cleared for discharge. Echocardiogram shows ejection fraction 40% PHYSICAL EXAMINATION: GENERAL: The patient is alert and oriented x3, not in any acute distress. HEENT: Pupils are round and equally reacting to light. EOMI. CARDIOVASCULAR: S1 and S2 present. No murmurs, rubs, or gallops. Lower extremity edema PULMONARY: Chest is clear to auscultation, no wheezing or crackles. ABDOMEN: Soft, nontender, nondistended, normoactive bowel sounds. No palpable organomegaly. MUSCULOSKELETAL: No joint swelling or deformity. EXTREMITIES: No cyanosis, clubbing, or pedal edema. NEUROLOGICAL: Gross neurological examination did not reveal any focal deficits. SKIN: No rashes. Assessment: Assessment and plan * New onset congestive heart failure, systolic heart failure EF 40% * Morbid obesity * Obstructive sleep apnea * Hypertension * Consultations obtained from cardiology, patient had serial troponins done which were negative, CTA chest negative for pulmonary embolism echocardiogram ordered and completed * Continue patient on losartan, hydrochlorothiazide, Lasix * In regards to history of obstructive sleep apnea continue patient on CPAP * For history of hypertension continue patient on Cozaar/HCTZ * Status is full code Patient Condition at Discharge: Stable Plan - Discharge Summary New Discharge Prescriptions: New Furosemide [Lasix] 40 mg PO DAILY 30 Days #30 tab Continue Pregabalin [Lyrica] 50 mg PO BID Super B Complex 1 tab PO DAILY Losartan/Hydrochlorothiazide [Losartan-Hctz 100-12.5 mg Tab] 1 tab PO DAILY Cholecalciferol [Vitamin D3 (125 Mcg = 5000 Iu)] 250 mcg PO DAILY Mv-Min/Folic/K1/Lycopen/Lutein [Centrum Silver Men Tablet] 1 tab PO DAILY Lutein 40 mg PO DAILY Discontinued Furosemide [Lasix] 20 mg PO DAILY Discharge Medication List Cholecalciferol [Vitamin D3 (125 Mcg = 5000 Iu)] 250 mcg PO DAILY 11/28/22 [History] Lutein 40 mg PO DAILY 11/28/22 [History] Mv-Min/Folic/K1/Lycopen/Lutein [Centrum Silver Men Tablet] 1 tab PO DAILY 11/28/22 [History] Pregabalin [Lyrica] 50 mg PO BID 11/28/22 [History] Super B Complex 1 tab PO DAILY 11/28/22 [History] Losartan/Hydrochlorothiazide [Losartan-Hctz 100-12.5 mg Tab] 1 tab PO DAILY 11/29/22 [History] Furosemide [Lasix] 40 mg PO DAILY 30 Days #30 tab 11/30/22 [Rx] Follow up Appointment(s)/Referral(s): Art Gómez MD [STAFF PHYSICIAN] - 1 Week Virgilio Branch DO [Primary Care Provider] - 1 Week Discharge Disposition: HOME SELF-CARE
[2022-11-30] MEDS ORDERED: NON FORMULARY DRUG (Losartan/Hydrochlorothiazide [Losartan-Hctz 100-12.5 Mg Tab] 1 EACH Ta PO SCH (10:00)
[2022-11-30 10:11] VITALS: BP 132/72; PULSE 50; RESP 18; TEMP 97.8
[2022-11-30] MEDS ORDERED: hydroCHLOROthiazide 12.5 MG CAP PO SCH (10:30)
== END 2022-11-30 11:53 | disposition home or self-care (01) ==
LOC: EC 13:52 → 6NMEDSUR 19:32
PROVIDERS: ADMIT Hospitalist; ATTEND Hospitalist
DX: I11.0 Hypertensive heart disease with heart failure (principal); I50.20 Unspecified systolic (congestive) heart failure; G47.33 Obstructive sleep apnea (adult) (pediatric); I49.3 Ventricular premature depolarization; I42.9 Cardiomyopathy, unspecified; R79.89 Other specified abnormal findings of blood chemistry; M19.90 Unspecified osteoarthritis, unspecified site; E66.01 Morbid (severe) obesity due to excess calories; Z68.41 Body mass index [BMI] 40.0-44.9, adult; Z11.52 Encounter for screening for COVID-19; Z79.899 Other long term (current) drug therapy; Z88.0 Allergy status to penicillin; Z91.040 Latex allergy status; Z96.642 Presence of left artificial hip joint; Z98.890 Other specified postprocedural states; Z82.49 Family history of ischemic heart disease and other diseases of the circulatory system; Z80.0 Family history of malignant neoplasm of digestive organs
CPT/HCPCS: 96376; 96372; 96374; 99285; 36415; 94760; 93005; 93306; 85379; 83880; 80053; 80048; 83605; 84484; 85025 ×2; 85610; 85730; 87636; 71046; 71275; G0378 ×3; J1644; J1940; Q9950; Q9967

== ENCOUNTER → 2022-12-18 | Outpatient (CLI) | payer MEDICARE ==
--- NOTE | 2022-12-18 17:15 | P.PN ---
Subjective DATE: 12/18/2022 FOLLOW UP VISIT. Patient with obstructive sleep apnea hypopnea syndrome return to sleep center for follow-up visit. This is first visit after patient received new CPAP unit. He sleeps better and feel better during the day. Information from previous visit have been reviewed. Patient is using PAP equipment every night for the whole night, getting PAP supplies in time. The patient does not have significant problems with the mask, PAP unit and humidification. [place] sleepiness scale is, which is normal. I checked information from PAP unit. PAP unit pressure 10-15, average 11.8 cm H2O. Usage is 83% and 77 % for more then 4 hours, average 5.6 hours per night. Apnea Hypopnea Index is 2.5, which is normal. MEDICATIONS:1. Flomax 4 mg once a day 2. Losartan 100 mg once a day 3. Pregabalin 50 mg twice a day During physical exam: GENERAL: A pleasant patient without any distress. VITAL SIGNS: BP 128/74, HR 63, RR 16 , weight 297.8, temperature 98.6, oxygen saturation at room air 96 % . HEENT: PERRLA, EOMI.low position of soft palate, Mall[place]ati 4 . NECK: Supple. No JVD. LUNGS: Clear to percussion and to auscultation. Good air exchange. No wheezing or rhonchi. HEART: S1, S2 regular. ABDOMEN: Soft and nontender.[] EXTREMITIES: No clubbing or cyanosis. SURGICAL AIDE: Awake, alert, and oriented x3. No focal deficit. Impressions: 1. Obstructive sleep apnea-hypopnea syndrome. Patient demonstrated good compliance with treatment, benefiting from treatment. 2. Obesity. 3. Hypertension. 4. History of periodic limb movements, no present complaints. Plan: 1. Continue using PAP equipment every night for the whole night. 2. To change air filter at least 1-2 times per month. 3. PAP unit should stay lower then position of the head. 4. Advised patient to remove all remaining water from humidifier canister daily and make it dry after each usage. Refill canister with fresh distilled water before each usage. 5. Sleep hygiene with regular time in bed for at least 8 hours. 6. Precautions related to driving. No driving if feel any sleepiness. 7. I will maintain prescription for PAP supplies including mask, tube, filters. 8. Follow up visit in 6 months or earlier if patient has any problems. 9. Watching weight. Thank you very much for allowing me to participate in the management of your patient. Stan Clemens MD, PhD, FAASM. Diplomat of [place] [employer], Sleep Medicine Board by [place] [employer] [facility] [place]
== END ==
LOC: 3 N SLEEP 15:05
PROVIDERS: ATTEND Internal Medicine
DX: G47.33 Obstructive sleep apnea (adult) (pediatric) (principal); E66.9 Obesity, unspecified; I10 Essential (primary) hypertension; G47.61 Periodic limb movement disorder; Z79.899 Other long term (current) drug therapy; Z99.89 Dependence on other enabling machines and devices; Z91.040 Latex allergy status; Z88.0 Allergy status to penicillin
CPT/HCPCS: 99212

== ENCOUNTER 2024-01-15 09:12 | Day surgery (SDC) | payer MEDICARE ==
[2024-01-15] MEDS ORDERED: SCOPOLAMINE 1 MG/72 HR PATCH TRANSDERM ONE (09:30)
[2024-01-15] MEDS ORDERED: MIDAZOLAM 2 MG/2 ML VIAL IV PRN (09:30)
[2024-01-15] MEDS: IV FLUID CONTINUATION 1,000 ML IV ONE (09:44)
[2024-01-15] MEDS: LACTATED RINGERS 1,000 ML IV SCH (10:02)
[2024-01-15] MEDS: DEXAMETHASONE SOD PHOSPHATE 4 MG/ML 1 ML VIAL IV ONE (10:03)
[2024-01-15] MEDS: ONDANSETRON 4 MG/2 ML VIAL IVP ONE (10:03)
[2024-01-15 10:08] LABS: Glucose,Whole Blood 100 mg/dL (70-110)
[2024-01-15] MEDS ORDERED: fentaNYL (PF) 50 MCG/ML 2 ML AMP ONE (10:38)
[2024-01-15] MEDS ORDERED: PROPOFOL 10 MG/ML 20 ML VIAL IV ONE (10:38)
[2024-01-15] MEDS ORDERED: MIDAZOLAM 2 MG/2 ML VIAL ONE (10:38)
[2024-01-15] MEDS ORDERED: LIDOCAINE 1% INJ 10MG/ML (20 ML MDV) ONE (10:38)
[2024-01-15] MEDS: LIDOCAINE 1% INJ 10MG/ML (20 ML MDV) SQ ONE (11:00)
[2024-01-15] MEDS: BUPIVACAINE (PF) 0.5% 30 ML VIAL SQ ONE (11:01)
--- NOTE | 2024-01-15 11:41 | P.OP ---
Date of Procedure: 01/15/24 Preoperative Diagnosis: Chronic plantar fasciitis left foot Postoperative Diagnosis: Chronic plantar fasciitis left foot Procedure(s) Performed: Endoscopic plantar fasciotomy left foot Anesthesia: MAC Surgeon: Yelena Moreno Estimated Blood Loss (ml): 1 Pathology: none sent Condition: stable Disposition: PACU Indications for Procedure: This is a 58-year-old male presenting to [facility] with chronic longstanding plantar fasciitis. Patient has failed all conservative management. Preoperative MRI, x-ray and H&P was reviewed. No contraindications noted to proposed surgery. No guarantees were given or implied. Patient agreed to proposed surgery. Operative Findings: As noted below. Description of Procedure: Under mild sedation patient was brought into the operating room and placed on the operating table in a supine position. Following general anesthesia the left leg was scrubbed prepped and draped in usual aseptic manner. A timeout was performed. Leg was raised to 60 degrees and hemostasis was achieved with ankle exsanguination with an Esmarch bandage and pneumatic tourniquet was inflated on the ankle to 225 mmHg. Leg was lowered to the table First the medial calcaneal tuberosity was easily palpated with taut plantar fascia. Windlass mechanism allowed us to palpate the medial band of the fascia. A small incision was made with a 15 blade on the medial aspect of the calcaneus just distal to the insertion. This was deepened with a hemostat with care to retract any vital neurovascular structures. At that time a hemostat was used to gently probe the fascia. A probe was placed across the fascia plantarly across the plantar aspect of the foot. Once a clear delineated path was noted the trocar was placed across the foot and a small incision was made on the lateral aspect of the foot to push the trocar through. Cannula was left intact and trocar was removed. The scope was placed in the medial aspect order to evaluate the plantar fascia. This was then removed and inserted into the lateral aspect of the foot. A hook blade was placed into the medial aspect and approximately 50% of the fascia was able to be notably released. Patient had extensive fatty tissue surrounding this area. I was able to visualize the exposed muscle belly underneath the fascia upon resection. I was very happy with the reduction of deformity post resection. At that time the scope was used to visualize the procedure and scope and blade were removed. The site was flushed with copious amounts of saline. Cannula was removed. Skin was closed with 4-0 nylon. A postoperative block consisting of 5 cc of 1% lidocaine plain and 5 cc of half percent Marcaine plain were injected to surrounding structures. A sterile compressive dressing consisting of Betadine soaked Adaptic, 4 x 4, Halley, Devonte bandage was applied. Patient tolerated the procedure and anesthesia well without complications and was transported to the recovery room with vital signs stable and vascular status intact to both feet. Patient will be discharged home per anesthesia. Patient struck to ice and elevate the foot while at rest. Patient instructed to do knee flexion and extension exercises daily. Patient will follow-up with myself at his next postoperative visit that is already been scheduled. He is given instruction to keep the dressing clean, dry, intact and to weight-bear as tolerated in a surgical shoe. He was prescribed [place] 5/325 to take every 8 hours as needed for pain control.
[2024-01-15 11:45] VITALS: TEMP 97.8
[2024-01-15] MEDS: HYDROmorphone 0.5 MG/0.5 ML SYRINGE IVP PRN (12:31)
[2024-01-15 13:34] VITALS: RESP 20
[2024-01-15 13:38] VITALS: BP 122/69; PULSE 57
== END 2024-01-15 14:23 ==
LOC: OR 09:12
PROVIDERS: ATTEND Podiatrist Foot & Ankle Surgery
DX: M72.2 Plantar fascial fibromatosis (principal)
CPT/HCPCS: 29893; J2250; J1100; J0690; J2405; J2003; J3010; J2704; J1171; J0665